=== PATIENT | female | born 1950 | race Caucasian/White ===

== ENCOUNTER 2018-02-11 20:39 | Emergency (ER) | payer OTHER, MEDICARE, SELFPAY ==
[2018-02-11 20:54] VITALS: BP 139/74; PULSE 66; RESP 15; TEMP 37.1; O2SAT 99; BMI 23.3
--- NOTE | 2018-02-11 21:23 | ED.EYEPROB ---
HPI - Eye Problem <Cassidy Robertson PA-C - Last Filed: 02/11/18 22:05> General Chief complaint: Eye Problems Stated complaint: LT EYE INJURY Time Seen by Provider: 02/11/18 21:23 Source: patient Mode of arrival: ambulatory Limitations: no limitations History of Present Illness HPI Narrative: This healthy 67-year-old female had a sharp piece of proud grass poke up under her glasses on the left side and into her eye a bit earlier. She states that it was quite painful at 1st but she flushed it thoroughly with saline, and now it is more scratchy and irritated. She feels like she has a cloudy urea on her pupil where it is harder to see normally, and this is right where the grass poked or scratched her. She denies any drainage from the eye or any other injury. Related Data Previous Rx's Medication Instructions Recorded erythromycin 0.5 inch EYE-LEFT Q6H #1 gram 02/11/18 Allergies Allergy/AdvReac Type Severity Reaction Status Date / Time cephalexin [From Keflex] Allergy Verified 02/11/18 20:57 clindamycin Allergy Verified 02/11/18 20:57 Penicillins Allergy Verified 02/11/18 20:57 Sulfa (Sulfonamide Allergy Verified 02/11/18 20:57 Antibiotics) Review of Systems <Cassidy Robertson PA-C - Last Filed: 02/11/18 22:05> Review of Systems All systems reviewed & are unremarkable except as noted in HPI and below Exam <Cassidy Robertson PA-C - Last Filed: 02/11/18 22:05> Narrative Exam Narrative: GENERAL APPEARANCE: Patient sitting comfortably, in no distress. HEENT: Vision: 20/30 OU, 20/30 OD, 20/40 OS PERRL, EOMI, no visible puncture wound or anterior deformity under plain magnification. After proparacaine drop and with fluorescin stain, there is a single linear abrasion over the cornea at the right superior pupil. No other visible abrasion. Negative Carol sign LUNGS: Clear to auscultation bilaterally. HEART: Rate and rhythm regular without murmur, normal S1 and S2, no S3 or S4. Initial Vital Signs Initial Vital Signs: Vital Signs Temperature 98.7 F 02/11/18 20:54 Pulse Rate 66 02/11/18 20:54 Respiratory Rate 15 02/11/18 20:54 Blood Pressure 139/74 H 02/11/18 20:54 Pulse Oximetry 99 02/11/18 20:54 <Edil Hyde MD - Last Filed: 02/27/18 10:01> Initial Vital Signs Initial Vital Signs: Vital Signs Temperature 98.7 F 02/11/18 20:54 Pulse Rate 66 02/11/18 20:54 Respiratory Rate 15 02/11/18 20:54 Blood Pressure 139/74 H 02/11/18 20:54 Pulse Oximetry 99 02/11/18 20:54 Course <Cassidy Robertson PA-C - Last Filed: 02/11/18 22:05> Additional Information: Erythromycin ointment was applied while patient was here. She will continue this, and agrees to call Ophthalmology in the morning if her vision is not improved. She agreed to return if any acutely worsening symptoms in the interim. Orders Ordered: Discontinued Medications Proparacaine HCl (Parcaine 0.5% Ophth Annabel) 1 drops EYE-LEFT NOW ONE Stop: 02/11/18 21:25 Last Admin: 02/11/18 21:49 Dose: 1 drop Tetanus/Diphtheria Toxoids (Td) 0.5 ml IM .ONCE ONE Stop: 02/11/18 21:42 Last Admin: 02/11/18 21:47 Dose: 0.5 ml Vital Signs - 8 hr 02/11/18 20:54 Temperature 98.7 F Pulse Rate 66 Respiratory Rate 15 Blood Pressure 139/74 H Pulse Oximetry 99 <Edil Hyde MD - Last Filed: 02/27/18 10:01> Orders Ordered: Discontinued Medications Proparacaine HCl (Parcaine 0.5% Ophth Annabel) 1 drops EYE-LEFT NOW ONE Stop: 02/11/18 21:25 Last Admin: 02/11/18 21:49 Dose: 1 drop Tetanus/Diphtheria Toxoids (Td) 0.5 ml IM .ONCE ONE Stop: 02/11/18 21:42 Last Admin: 02/11/18 21:47 Dose: 0.5 ml Vital Signs - 8 hr 02/11/18 20:54 Temperature 98.7 F Pulse Rate 66 Respiratory Rate 15 Blood Pressure 139/74 H Pulse Oximetry 99 Discharge Plan Departure Patient Disposition: Home, Self-Care Clinical Impression: Abrasion, corneal Discharge Date/Time: 02/11/18 22:00 Interventions: ED Discharge Assessment Last Done: 02/11/18 22:19 Instructions: DI for Corneal Abrasion Activity Restrictions/Additional Instructions: Please return as we talked about if any acutely worsening symptoms. Apply a warm compress to the eye as needed for drainage or for discomfort. Put in a 1/2 inch ribbon of the antibiotic ointment under your eyelid every 3-4 hours while you are awake for the next 24 hr, then every 6 hr for [address] Bernardo or Dr. Kelly at the opthamology clinic here in [place] tomorrow if your vision is not improved, and let them know that you were seen in the emergency room and need follow-up due to your vision change and eye abrasion Prescriptions: New erythromycin 5 mg/gram (0.5 %) ointment 0.5 inch EYE-LEFT Q6H Qty: 1 RF: 0 Referrals: Priyank Bernardo MD [Physician] - Maliha Ambrocio PA-C [Non-Staff] - <Edil Hyde MD - Last Filed: 02/27/18 10:01> Sign Out Provider Sign Out Attestation: The PA/MERCHANDISE SUPERVISOR functioned independently for the care of this pt, I was available, but not asked to participate in care. I am unable to determine appropriateness of management without personally examining the pt.
[2018-02-11] MEDS: TETANUS DIPHTHERIA TOXOIDS 0.5 ML VIAL IM (21:47)
[2018-02-11] MEDS: PROPARACAINE 0.5% OPHTH SOL 1 DROPS EYE-LEFT (21:49)
== END 2018-02-11 22:00 | disposition home or self-care (01) ==
PROVIDERS: Emergency Provider Internal Medicine
DX: S05.02XA Injury of conjunctiva and corneal abrasion without foreign body, left eye, initial encounter (principal); W26.8XXA Contact with other sharp object(s), not elsewhere classified, initial encounter
CPT/HCPCS: 90471; 90714; 99283

== ENCOUNTER 2019-08-24 17:43 | Emergency (ER) | payer OTHER, MEDICARE, SELFPAY ==
--- NOTE | 2019-08-24 17:53 | DI.RAD.S_ITS ---
PROCEDURE: XR WRIST LT MIN 3V INDICATIONS: wrist deformity TECHNIQUE: 3 views of the wrist were acquired. COMPARISON: None. FINDINGS: Bones: Comminuted, moderately displaced and slightly angulated distal radius fracture with extension to the articular surface. There is also mild impaction. There is mild radial displacement of the majority of the distal fracture fragment. A small ulnar styloid avulsion is seen. Osteoarthritic changes at the first carpometacarpal joint. Soft tissues: No suspicious soft tissue calcifications. IMPRESSION: 1. Comminuted, impacted, moderately displaced and angulated intra-articular distal radius fracture. 2. Tiny ulnar styloid avulsion. Dictated by: Sheila Marsh M.D. on 08/24/2019 at 18:51 Approved by: Sheila Marsh M.D. on 08/24/2019 at 18:53
[2019-08-24 17:54] VITALS: BP 122/66; PULSE 48; RESP 15; TEMP 36.4; O2SAT 98; BMI 23.6
--- NOTE | 2019-08-24 18:43 | DI.RAD.S_ITS ---
PROCEDURE: XR ELBOW LT MIN 3V INDICATIONS: Elbow pain post fall TECHNIQUE: 3 views of the elbow were acquired. COMPARISON: None. FINDINGS: Bones: No fractures or dislocations. No suspicious bony lesions. Soft tissues: No elbow joint effusion. No suspicious soft tissue calcifications. IMPRESSION: Intact left elbow. Dictated by: Sheila Marsh M.D. on 08/24/2019 at 20:29 Approved by: Sheila Marsh M.D. on 08/24/2019 at 20:30
--- NOTE | 2019-08-24 18:45 | ED.UPPEXIN ---
HPI - Extremity Injury (Upper) <SUZY Louis - Last Filed: 08/25/19 11:20> General Chief Complaint: Extremity Injury, Upper Stated Complaint: lt wrist injury Time Seen by Provider: 08/24/19 17:58 Source: patient Mode of arrival: Wheelchair Limitations: no limitations History of Present Illness HPI narrative: 69-year-old female presents to the emergency department complaining of left wrist and elbow pain after falling while slipping on the ice. She states she fell and stuck her left hand backwards. She heard a snap and noticed an immediate deformity. Patient denies hitting her head or taking any blood thinners, she shoulder pain, chest pain, shortness of breath, nausea, vomiting, diarrhea, or other concerns. She denies syncope. Related Data Previous Rx's Medication Instructions Recorded erythromycin 0.5 inch EYE-LEFT Q6H #1 gram 02/11/18 hydrocodone-acetaminophen [Olalla] 1 tab PO Q4-6H PRN #14 tab 08/24/19 Allergies Allergy/AdvReac Type Severity Reaction Status Date / Time cephalexin [From Keflex] Allergy Verified 08/24/19 17:54 clindamycin Allergy Verified 08/24/19 17:54 codeine Allergy Verified 08/24/19 17:54 Penicillins Allergy Verified 08/24/19 17:54 Sulfa (Sulfonamide Allergy Verified 08/24/19 17:54 Antibiotics) Review of Systems <SUZY Louis - Last Filed: 08/25/19 11:20> Review of Systems Narrative: REVIEW OF SYSTEMS: GENERAL: Denies fever or chills. HENT: No head trauma. EYES: No double vision or vision loss. CARDIOVASCULAR: No chest pain or syncope. RESPIRATORY: No shortness of breath or cough. GASTROINTESTINAL: No nausea, vomiting, diarrhea, or constipation. GENITOURINARY: No flank pain or dysuria. MUSCULOSKELETAL: Complains of Left wrist pain, see HPI. INTEGUMENTARY: No rash, lesions, or pruritus. NEURO: No numbness, tingling. PSYCH: No behavior or mood changes. Patient History <SUZY Louis - Last Filed: 08/25/19 11:20> Medical History Healthy female (Chronic) Surgical History H/O pelvic surgery (Resolved) Social History Smoking Status: Never smoker alcohol intake: current substance use type: does not use Smoking Status: Never smoker alcohol intake frequency: holidays/special occasions only Substance Use Type: does not use Exam <SUZY Louis - Last Filed: 08/25/19 11:20> Initial Vital Signs Initial Vital Signs: Vital Signs Temperature 97.6 F 08/24/19 17:54 Pulse Rate 48 L 08/24/19 17:54 Respiratory Rate 15 08/24/19 17:54 Blood Pressure 122/66 08/24/19 17:54 Pulse Oximetry 98 08/24/19 17:54 PHYSICAL EXAMINATION: GENERAL: Well groomed, alert, and cooperative. Answers questions promptly and appropriately. Vital signs noted. HENT: Normocephalic, atraumatic. EYES: PERRLA EOMIs, symmetrical, sclera white, no periorbital swelling. CARDIOVASCULAR: S1 and S2 sounds normal. Regular rate and rhythm, no murmurs, clicks, or bruits. No pedal edema. RESPIRATORY: Normal respiratory rate, trachea midline, airway patent. No stridor, nasal flaring or accessory muscle use. Lungs are clear in all luis. MUSCULOSKELETAL: Tenderness to left wrist with obvious deformity, swelling, and ecchymosis. Very limited range of motion due to pain. Slight tenderness to palpation of left elbow. Normal gait and coordination. Equal tone and mass bilaterally. No spinal tenderness or deformities. no tenderness to shoulders, neck, head, pelvis, knees, or ankles. EXTREMITIES: CMS intact. radial pulses 2+ and intact bilaterally. SKIN: Warm, dry, soft, appropriate color for ethnicity. No lesions, rashes, or wounds. NEURO: Alert and Oriented X 3. No sensory deficits. PSYCH: Appropriate affect and mood. <Edgar Yoon MD - Last Filed: 09/12/19 19:26> Initial Vital Signs Initial Vital Signs: Vital Signs Temperature 97.6 F 08/24/19 17:54 Pulse Rate 48 L 08/24/19 17:54 Respiratory Rate 15 08/24/19 17:54 Blood Pressure 122/66 08/24/19 17:54 Pulse Oximetry 98 08/24/19 17:54 Procedures <SUZY Louis - Last Filed: 08/25/19 11:20> Nerve Block Nerve Block 1: Time out performed: Yes Local Anesthetic: lidocaine 2% Amount of anesthesia used (mL): 10 Side: left Nerve Blocks: hematoma block Procedure Successful: Yes Patient Tolerated Procedure: Well Complications: none Additional Comments: Completed by Dr. Yoon Orthopedic Joint Reduction Joint #1: Time Out Performed: Yes Side: left Joint Reduction Location: wrist Analgesia: hematoma block Local Anesthesia: lidocaine 2% Amount of anesthesic used (mL): 10 Technique used: traction/counter-traction Post-reduction neuro exam: intact Post-reduction vascular: intact Post Reduction X-Ray Obtained: Yes Post Reduction X-Ray Results: reduced Splint Applied: Yes Patient Tolerated Procedure: Well Additional Comments: Completed by Dr. Yoon. Orthopedic Splinting/Casting Injury #1: Side: left Upper Extremity Injury Location: wrist Upper Extremity Immobilizer: sling/shoulder immobilizer and sugar tong splint Post splinting neuro exam: intact Post splinting vascular exam: intact Placed by: Nursing Course <SUZY Louis - Last Filed: 08/25/19 11:20> Course Course Narrative: Patient was given Olalla and ondansetron to help with pain in the emergency department stay. Dr. Fishman consulted and Recommended reduction. Dr. Yoon reduced wrist with hematoma block, See procedure note. patient tolerated well and was discharged with pain medications. CMS remains intact before and after reduction. Orders Ordered: Discontinued Medications Hydrocodone Bitart/Acetaminophen (Olalla 5/325) 1 tab PO NOW ONE Stop: 08/24/19 18:45 Last Admin: 08/24/19 19:14 Dose: 1 tab Documented by: THEO Hydrocodone Bitart/Acetaminophen (Vicodin 5/325 Prepack) 1 bottle MISC SEEINSTR ONE Stop: 08/24/19 21:34 Last Admin: 08/24/19 21:49 Dose: 1 bottle Documented by: THEO Lidocaine HCl 15 ml/ Sodium (Chloride) 65 mls @ 390 mls/hr IV NOW ONE Stop: 08/24/19 20:35 Last Admin: 08/24/19 22:05 Dose: Not Given Documented by: THEO Ondansetron HCl (Zofran Odt) 4 mg SL NOW ONE Stop: 08/24/19 18:45 Last Admin: 08/24/19 19:14 Dose: 4 mg Documented by: THEO Ondansetron HCl (Zofran Odt Prepack) 1 bottle MISC SEEINSTR ONE Stop: 08/24/19 21:34 Last Admin: 08/24/19 21:49 Dose: 1 bottle Documented by: THEO Consultations Consultation #1: Patient staffed with Dr. Yoon Consultation #2: Dr. Fishman consulted, recommended reduction. Vital Signs Vital signs: Vital Signs - 8 hr 08/24/19 17:54 Temperature 97.6 F Pulse Rate 48 L Respiratory Rate 15 Blood Pressure 122/66 Pulse Oximetry 98 <Edgar Yoon MD - Last Filed: 09/12/19 19:26> Orders Ordered: Discontinued Medications Hydrocodone Bitart/Acetaminophen (Olalla 5/325) 1 tab PO NOW ONE Stop: 08/24/19 18:45 Last Admin: 08/24/19 19:14 Dose: 1 tab Documented by: THEO Hydrocodone Bitart/Acetaminophen (Vicodin 5/325 Prepack) 1 bottle MISC SEEINSTR ONE Stop: 08/24/19 21:34 Last Admin: 08/24/19 21:49 Dose: 1 bottle Documented by: THEO Lidocaine HCl 15 ml/ Sodium (Chloride) 65 mls @ 390 mls/hr IV NOW ONE Stop: 08/24/19 20:35 Last Admin: 08/24/19 22:05 Dose: Not Given Documented by: THEO Ondansetron HCl (Zofran Odt) 4 mg SL NOW ONE Stop: 08/24/19 18:45 Last Admin: 08/24/19 19:14 Dose: 4 mg Documented by: THEO Ondansetron HCl (Zofran Odt Prepack) 1 bottle MISC SEEINSTR ONE Stop: 08/24/19 21:34 Last Admin: 08/24/19 21:49 Dose: 1 bottle Documented by: THEO Vital Signs Vital signs: Vital Signs - 8 hr 08/24/19 17:54 Temperature 97.6 F Pulse Rate 48 L Respiratory Rate 15 Blood Pressure 122/66 Pulse Oximetry 98 MDM - Extremity Injury (Upper) <SUZY Louis - Last Filed: 08/25/19 11:20> Medical Records Attestation: I reviewed the patient's medical records. Lab Data Attestation: I reviewed the patient's lab results. Imaging Data Pre reduction Wrist XR: Radiologist's Impression: [address] [address] XRay Report Signed Patient: Amita Gloria YMR#: [id number] : 2At:[id number] Age/Sex: 69 / FDate of Service: 08/24/19 Loc: ED Accession Number: [id number] Procedure: XR wrist LT min 3V Ordering Provider: Gladys Cesar D.O. PROCEDURE: XR WRIST LT MIN 3V INDICATIONS: wrist deformity TECHNIQUE: 3 views of the wrist were acquired. COMPARISON: None. FINDINGS: Bones: Comminuted, moderately displaced and slightly angulated distal radius fracture with extension to the articular surface. There is also mild impaction. There is mild radial displacement of the majority of the distal fracture fragment. A small ulnar styloid avulsion is seen. Osteoarthritic changes at the first carpometacarpal joint. Soft tissues: No suspicious soft tissue calcifications. IMPRESSION: 1. Comminuted, impacted, moderately displaced and angulated intra-articular distal radius fracture. 2. Tiny ulnar styloid avulsion. Dictated by: Sheila Marsh M.D. on 08/24/2019 at 18:51 Approved by: Sheila Marsh M.D. on 08/24/2019 at 18:53 Elbow XRay: Radiologist's Impression: [address] [address] XRay Report Signed Patient: Amita Gloria YMR#: [id number] : 2At:[id number] Age/Sex: 69 / FDate of Service: 08/24/19 Loc: ED Accession Number: [id number] Procedure: XR elbow LT min 3V Ordering Provider: Ursula Acevedo PROCEDURE: XR ELBOW LT MIN 3V INDICATIONS: Elbow pain post fall TECHNIQUE: 3 views of the elbow were acquired. COMPARISON: None. FINDINGS: Bones: No fractures or dislocations. No suspicious bony lesions. Soft tissues: No elbow joint effusion. No suspicious soft tissue calcifications. IMPRESSION: Intact left elbow. Dictated by: Sheila Marsh M.D. on 08/24/2019 at 20:29 Approved by: Sheila Marsh M.D. on 08/24/2019 at 20:30 Post reduction: Radiologist's Impression: [facility] [address] [place] [id number] XRay Report Signed Patient: Amita Gloria YMR#: [id number] : 2Acct:[id number] Age/Sex: 69 / FDate of Service: 08/24/19 Loc: ED Accession Number: [id number] Procedure: XR wrist LT 2V Ordering Provider: Ursula Acevedo PROCEDURE: XR WRIST LT 2V INDICATIONS: post reduction film TECHNIQUE: 2 views of the wrist were acquired. COMPARISON: [facility], , XR WRIST LT MIN 3V, 08/24/2019, 18:07. FINDINGS: Bones: Splint material obscures fine bone detail. There is improved alignment of the comminuted and previously moderately displaced distal radial fracture. There has also been reduction of the volar angulation. Ulnar styloid avulsion is again seen as are osteoarthritic changes at the first carpometacarpal.. No suspicious bony lesions. Soft tissues: No suspicious soft tissue calcifications. IMPRESSION: 1. Improved alignment of the comminuted, intra-articular distal radius fracture including reduction of angulation. 2. Trace ulnar styloid fracture. 3. Osteoarthritic changes. Dictated by: Sheila Marsh M.D. on 08/24/2019 at 22:23 Approved by: Sheila Marsh M.D. on 08/24/2019 at 22:25 [facility] Narrative Medical decision making narrative: 69-year-old female presenting to the emergency department complaining of left wrist pain after a fall, notable deformity and swelling. X-ray shows displaced radial fracture and ulnar avulsion. Fracture was reduced by hematoma block by Dr. Yoon. Sugar-tong splint was placed. improved pain and alignment after reduction. CMS remains intact before and after reduction. Patient was given a sling and told to follow up with an orthopedic. She was discharged with medication for pain. No signs of distracting injuries. Return precautions given. Discharge Plan Departure Patient Disposition: Home Clinical Impression: Distal radial fracture Discharge Date/Time: 08/24/19 22:04 Instructions: DI for Distal Radius Fracture Activity Restrictions/Additional Instructions: Thank you for entrusting me with your care today. As discussed, Your x-ray show a distal radius fracture and ulna styloid avulsion. Please leave the splint in place until you see an orthopedic. Please call Orthopedics office tomorrow and tell them you were in the emergency department and schedule an appointment. I've given you medication for nausea and pain. You have been prescribed a narcotic medication, this medication can make you drowsy. Do not drive while using this medication or perform activities that require mental alertness. These medications can also make you constipated, please use [id number] docusate sodium as needed for constipation. Return emergency department for new or worsening symptoms such as decreased sensation in wrist, chest pain, shortness of breath, or other concerns. Prescriptions: New hydrocodone-acetaminophen [Olalla] 5-325 mg tablet 1 tab PO Q4-6H PRN (Reason: pain) Qty: 14 RF: 0 No Action erythromycin 5 mg/gram (0.5 %) ointment 0.5 inch EYE-LEFT Q6H Qty: 1 RF: 0
[2019-08-24] MEDS: ONDANSETRON 4 MG ODT SL (19:14)
[2019-08-24] MEDS: HYDROCODONE/ACET 5/325 TABLET 1 TAB PO (19:14)
--- NOTE | 2019-08-24 21:14 | DI.RAD.S_ITS ---
PROCEDURE: XR WRIST LT 2V INDICATIONS: post reduction film TECHNIQUE: 2 views of the wrist were acquired. COMPARISON: [facility], CR, XR WRIST LT MIN 3V, 08/24/2019, 18:07. FINDINGS: Bones: Splint material obscures fine bone detail. There is improved alignment of the comminuted and previously moderately displaced distal radial fracture. There has also been reduction of the volar angulation. Ulnar styloid avulsion is again seen as are osteoarthritic changes at the first carpometacarpal.. No suspicious bony lesions. Soft tissues: No suspicious soft tissue calcifications. IMPRESSION: 1. Improved alignment of the comminuted, intra-articular distal radius fracture including reduction of angulation. 2. Trace ulnar styloid fracture. 3. Osteoarthritic changes. Dictated by: Sheila Marsh M.D. on 08/24/2019 at 22:23 Approved by: Sheila Marsh M.D. on 08/24/2019 at 22:25
[2019-08-24] MEDS: HYDROCODONE/ACET 5/325 PREPACK 1 BOTTLE MISC (21:49)
[2019-08-24] MEDS: ONDANSETRON 4 MG ODT PREPACK 1 BOTTLE MISC (21:49)
[2019-08-24 22:04] VITALS: BP 122/81; PULSE 57; RESP 18; O2SAT 98
== END 2019-08-24 22:04 | disposition home or self-care (01) ==
PROVIDERS: Emergency Provider Nurse Practitioner
DX: S52.502A Unspecified fracture of the lower end of left radius, initial encounter for closed fracture (principal); W00.0XXA Fall on same level due to ice and snow, initial encounter
CPT/HCPCS: 25605; 29125; 64450; 73080; 73100; 73110; 99284

== ENCOUNTER → 2021-01-15 09:50 | Outpatient (CLI) | payer OTHER, MEDICARE, SELFPAY ==
[2021-01-15 12:28] LABS: COVID19 -Nasal RAPID Negative (Negative)
== END ==
PROVIDERS: Visit Provider Physician Assistant
DX: Z01.812 Encounter for preprocedural laboratory examination (principal); Z20.822 Contact with and (suspected) exposure to COVID-19
CPT/HCPCS: 87635

== ENCOUNTER → 2021-01-15 09:57 | Outpatient (CLI) | payer OTHER, MEDICARE, SELFPAY ==
--- NOTE | 2021-01-16 16:23 | DI.NM.S_ITS ---
DATE OF SERVICE: PROCEDURE: Exercise perfusion study. DATE OF STUDY: January 16, 2021. INDICATIONS: Chest pain. RADIOPHARMACEUTICAL: 26.2 millicurie technetium-99m Myoview IV was injected at stress and 26.0 millicurie technetium-99m Myoview IV was injected at rest. CARDIAC STRESS: The patient underwent exercise perfusion study under the supervision of an attending staff. She walked on Diogo protocol for 6 minutes and achieved 89 percent of target heart rate. Initial blood pressure 132/68 mmHg. Peak blood pressure 210/76 mmHg. At 2 minutes into the exercise, patient developed chest pain which was on a scale of 1-10, 4 in intensity, which increased to 8/10 in intensity at peak exercise. Baseline rhythm was sinus with repolarization changes and T-wave inversion in V1 to V4. During stress, the patient developed about [address] depression in inferior lateral leads and in recovery, which became more pronounced, as well as some flattening in lead V4 to V6 with 1-[address] depression. There was slight ST elevation in AVR lead. No significant arrhythmias seen. ST-segment recovered in 5 minutes into the recovery. T-wave became upright in anterior septal lead during exercise. RAW DATA: LV ejection fraction during stress about 67 percent. There is a decreased uptake in the distal anterior wall and apex with hypokinesis in that segment. Resting end-diastolic volume 89 mL. TID ratio 1.16, which is within normal limits. Lung/heart ratio 0.30, which is within normal limits. MYOCARDIAL PERFUSION SCAN: Stress supine, resting supine and stress prone images were compared to each other. Resting supine images revealed moderate- size severely decreased perfusion of distal anterior wall extending into the anterior apex. During stress supine and stress prone images, there was large size, severely decreased perfusion of mid to distal anterior wall, entire apex, as well as mid to distal anterior septum. CONCLUSION: This is an abnormal myocardial perfusion study consistent with moderate size infarction of distal anterior wall, anterior apex with significant reversible ischemia of mid to distal anterior septum, mid anterior wall as well as inferior apex. 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 Findings of this abnormal perfusion study reported to PCP Maliha Ambrocio. Will recommend hospitalization and transfer to the facility where she can have left heart catheterization. Amita Gloria - DERMATOLOGIST/fn/cs doc#: [id number]/job#: [id number] dd: 01/16/2021 13:14:00 dt: 01/16/2021 15:50:00 DICTATING MD/COPIES TO: Randy Pugh MD; MERISSA Viera COPIES MNE: TASNEEM;
== END ==
PROVIDERS: PCP Physician Assistant Medical; Referring Provider Physician Assistant Medical; Visit Provider Physician Assistant Medical
DX: R07.9 Chest pain, unspecified (principal)
CPT/HCPCS: 78452; 93017; A9502

== ENCOUNTER → 2021-04-10 16:46 | Outpatient (CLI) | payer OTHER, MEDICARE, SELFPAY ==
[2021-04-10 18:11] LABS: COVID19 -Nasal RAPID Negative (Negative)
== END ==
PROVIDERS: PCP Physician Assistant; Visit Provider Physician Assistant
DX: Z20.822 Contact with and (suspected) exposure to COVID-19 (principal)
CPT/HCPCS: 87635

== ENCOUNTER 2021-07-25 08:30 | Outpatient (RCR) | payer OTHER, MEDICARE, SELFPAY ==
--- OUTSIDE RECORDS SUMMARY | 2021-01-29 08:28 | XMS_ITS ---
:1950 Author Organization [facility] Address [address] [place] [address] Care Team Providers Name Role Phone Young Primary Care Provider Reason for Referral Hospital - Outpatient (Routine) Status Reason Specialty Diagnoses / Referred By Referred To Procedures Contact Contact Authorized Diagnoses Presence of coronary angioplasty implant and graft Rajesh Brock [facility] [address] [place] [address] [address] [id number] [place], [place] Phone: [phone] Electronically signed by Rajesh Brock MD at Reason for Visit Reason Comments Chest Pain Auth/Cert Status Reason Specialty Diagnoses / Procedures Referred By James shukla Referred To Contact Diagnoses Unstable angina (CMS/HCC) Procedures INPATIENT Encounter Details Date Type Department Care Team Description 01/16/2021 - Hospital Encounter [facility] Jerzy Karimi MD [address] [place], [place] [id number] Unstable angina (CMS/HCC) (Primary Dx); 01/18/2021 Hospital Progressive Joseph Florez MD [address] [place], [place] [id number] Acute ST elevation myocardial infarction (STEMI) due to occlusion of distal portion of left anterior descending (LAD) coronary artery (CMS/HCC) and Critical Care Jacklyn Lockett DO [address] [place], [place] [id number] [address] [place] [address] Allergies Active Allergy Reactions Severity Noted Date Comments Clindamycin Hives High 01/16/2021 Penicillins Hives High 01/16/2021 Sulfa (Sulfonamide Antibiotics) Hives High documented as of this encounter (statuses as of 01/26/2021) Medications Medication Sig Dispensed Refills Start Date End Date Status omeprazole (PriLOSEC) Take 20 mg by 0 Active 20 mg capsule mouth daily aspirin 81 mg chewable Take 1 tablet 30 tablet 0 01/19/2021 Active tablet (81 mg total) by mouth daily atorvastatin (LIPITOR) Take 1 tablet 30 tablet 0 01/18/2021 Active 40 mg tablet (40 mg total) by mouth nightly clopidogreL (PLAVIX) Take 1 tablet 30 tablet 1 01/19/202103/11 Active 75 mg tablet (75 mg total) by mouth daily documented as of this encounter (statuses as of 01/26/2021) Social History Tobacco Use Types Packs/Day Years Used Date Never Assessed Sex Assigned at Date Recorded Not on file Job Start Date Occupation Industry Not on file Not on file Not on file COVID-19 Exposure Response Date Recorded In the last month, have you been in contact with No / Unsure 01/16/2021 2:36 PM PDT someone who was confirmed or suspected to have Coronavirus / COVID-19? documented as of this encounter Last Filed Vital Signs Vital Sign [place] Time Taken Comments Blood Pressure 135/74 01/18/2021 8:14 AM PDT Pulse 67 01/18/2021 8:14 AM PDT Temperature 37.2 ??C (99 ??F) 01/18/2021 8:14 AM PDT Respiratory Rate 18 01/18/2021 8:14 AM PDT Oxygen Saturation 95% 01/18/2021 4:18 AM PDT Inhaled Oxygen Concentration - - Weight 65.3 kg (144 lb) 01/16/2021 8:08 PM PDT Height 167.6 cm (5' 6) 01/16/2021 8:08 PM PDT Body Mass Index 23.24 01/16/2021 8:08 PM PDT documented in this encounter Discharge Summaries Jacklyn Lockett, DO - 01/18/2021 11:05 AM PDT [facility] Physicians Discharge Summary Inpatient Primary Care Located Within [facility] Name: Amita Gloria Date of : 1950 Age: 70 y.o. Admit Date: 01/16/2021 Date of Discharge: 01/18/2021 Code Status: Full Code PCP: Maliha Ambrocio. Admitting Provider: Joseph Florez MD Discharging Provider: Jacklyn Lockett DO Hospital Day: 2 Date of Service: 01/18/2021 Pending Tests and other issues requiring follow up No future appointments. Discharge Medications Amita Gloria Home Medication Instructions JESSENIA:[id number] Printed on:01/18/21 2344 Medication Information aspirin 81 mg chewable tablet Take 1 tablet (81 mg total) by mouth daily atorvastatin (LIPITOR) 40 mg tablet Take 1 tablet (40 mg total) by mouth nightly clopidogreL (PLAVIX) 75 mg tablet Take 1 tablet (75 mg total) by mouth daily omeprazole (PriLOSEC) 20 mg capsule Take 20 mg by mouth daily Brief Reason for Admission From the H&P performed by Joseph Florez MD on 01/16/2021: Amtia Gloria??is a 70 y.o.??female??no significant past medical history,??several months of intermittent chest pain presenting from [place] after abnormal stress test??for further cardiac work-up by cardiology. Hospital Course by Problem Summary Statement: The patient was admitted to the hospital after a transfer from [facility] due to an abnormal stress test. The patient had a drug- eluting stent placed to the LAD. NSTEMI-??Present on Admission, Active -Abnormal treadmill stress test prior to admission on 01/16/2021.?? -EKG-T wave inversions -Initial Trop negative,??repeat troponin negative -Telemetry no acute evens -Heparin GTT -Plavix, ASA 81mg -Left heart cath 01/17/2021 drug-eluting stent placed to the LAD -Cardiology consulted Hyperlipidemia, present on admission, active -Lipid panel: Total cholesterol 227, HDL 74, LDL 137, triglyceride 80 -Atorvastatin 40 mg daily -Follow-up with PCP for medication adjustments Code Status:??Full code. Disposition Amita Gloria was discharged to Home in stable condition. Objective First recorded vital signs: Temp: 37 ??C (98.6 ??F) - BP: 134/70 - Heart Rate: 79 - Resp: 13 - SpO2: 99 % Most recent vital signs: Temp: 37.2 ??C (99 ??F) - BP: 135/74 - Heart Rate: 67 - Resp: 18 - SpO2: 95 % Physical Exam I have seen and examined Amita Gloria on 01/18/2021. Labs & ECG Hematology Results from last 7 days Lab Units 01/18/21 0911 01/17/21 0550 01/16/21 1454 WBC AUTO x10e3/uL 8.2 6.0 7.4 HEMOGLOBIN g/dL 12.3 13.1 13.1 HEMATOCRIT % 37.8 39.8 39.7 MCV fL 91 89 90 PLATELETS AUTO x10e3/uL 164 164 162 Chemistries Results from last 7 days Lab Units 01/18/21 0911 01/17/21 0550 01/16/21 1454 SODIUM mmol/L 138 140 139 POTASSIUM mmol/L 4.0 3.8 3.6 CHLORIDE mmol/L 104 107 104 CO2 mmol/L 24 22 24 BUN mg/dL 12.0 10.0 12.0 CREATININE mg/dL 0.71 0.65 0.73 GLUCOSE mg/dL 106* 103* 148* CALCIUM, SERUM mg/dL 9.4 9.3 9.6 MAGNESIUM mg/dL 1.9 -- -- AST U/L 19 20 23 ALT U/L 15 18 20 BILIRUBIN TOTAL mg/dL 0.9 0.8 0.4 ALBUMIN g/dL 4.0 4.0 4.1 TOTAL PROTEIN g/dL 7.1 7.0 7.6 Estimated Creatinine Clearance: 50.4 mL/min (by C-G formula based on SCr of 0.71 mg/dL). Coagulation Studies Results from last 7 days Lab Units 01/16/21 1454 INR 1.0 APTT sec 34.8* Urinalysis Cardiac Enzymes Results from last 7 days Lab Units 01/17/21 0550 01/16/21 1454 TROPONINT ug/L <0.010 <0.010 Lipid Profile Results from last 7 days Lab Units 01/18/21 0911 CHOLESTEROL mg/dL 227* HDL mg/dL 74 LDL CALCULATED mg/dL 137* VLDL CHOLESTEROL mg/dL 16 TRIGLYCERIDES mg/dL 80 Arterial Blood Gases Miscellaneous Labs Important Diagnostic Imaging XR CHEST 1 VIEW Result Date: 01/16/2021 [place]. [address] PATIENT NAME: AMITA GLORIA : 1950 GENDER: F EXAM DATE: 01/16/2021 15:42 ORDERED FROM: [facility] ORDERING PHYSICIAN: LAWRENCE KARIMI CC: -- - - - CONTRAST: [place] STATION ID: [id number] mGy: PROCEDURE: XR CHEST 1 VIEW INDICATIONS: chest painTECHNIQUE: One view of the chest was acquired. COMPARISON: None. FINDINGS: Surgical changes and devices: None. Lungs and pleura: On this semiupright portable chest examination, no large pneumothorax or large pleural effusions are seen. No focal infiltrates are seen. Mediastinum: Mediastinal contours appear normal. Heart size is normal. Bones and chest wall: No suspicious bony lesions. Age-appropriate bony degenerative changes are seen. Overlying soft tissues appear unremarkable. IMPRESSION: Unremarkable portable chest for age. Reviewed by: Desmond Martines M.D. on 01/16/2021 at 15:15 Approved by: Desmond Martines M.D. on 01/16/2021 at 15:15 SI LEFT HEART CATH Result Date: 01/17/2021 DATE OF SURGERY: 01/17/2021 PROCEDURE: 1. Selective right and left coronary angiography. 2. Left heart catheterization. 3. Percutaneous intervention on a chronically occluded left anterior descending. 4. Ultrasound guidance for access. 5. Supervision for moderate sedation. INDICATION: Unstable angina. PROCEDURAL DETAILS: Please refer to the procedure log. The patient was given moderate sedation with IV versed and fentanyl by a dedicated nurse under my [id number] supervision using physiological monitoring for the duration of the procedure. Briefly, it was done via right radial approach using a 6-Ivorian system. ANGIOGRAPHIC FINDINGS: 1. This right coronary artery is a large dominant vessel. It has mild luminal irregularities. No critical disease is noted. Collaterals faintly fill the LAD. 2. Left main: No significant disease. 3. Circumflex is nondominant. It is has mild luminal irregularities, but no critical stenosis. 4. LAD is totally occluded in its midportion past the takeoff of a small septal branch. The rest of the LAD fills via intracoronary collaterals as well. 5. Left heart catheterization revealed an LVEDP of 5. There was no gradient upon pullback. INTERVENTIONAL DETAILS: We tried to recanalize this vessel with a Terumo wire however it would not cross. We used a 1.5 mm Takeru balloon and this gave us additional push ability and we were able to cross the distal fibrous cap as well. Following that, balloon angioplasty was done initially with a 1.5 balloon. There was significant dissection at the point of BOBBIN COLLECTOR. This is not unexpected. We then did further inflations with a 2.0 balloon. Finally, we stented the mid LAD with a 2.5 x 28 mm stent. Proximal to that a 3.0 x 18 mm stent was delivered. At the distal edge of the 2.5 balloon therewas further plaque shift and dissection. We tacked this up with a 2.0 x 20 mm Groton drug coated stent. Of note, the rest of the stents were Xience. At this point we had deployed 3 stents. To summarize distally a 2.0 x 20 Gro[place], followed by 2.5 x 28 Xience followed by 3.0 x 18 Xience. Overlapping inflations were done with a noncompliant balloon distally. Final angiographic results were excellent.In summary, successful recanalization of a totally occluded LAD. The patient is advised dual antiplatelet therapy for at least 6 months post procedure. Admission Diagnosis(es) Unstable angina (CMS/[facility]) [I20.0] Present on Admission: None Discharge Diagnosis(es) Active Problems: No Active Problems: There are no active problems currently on the Problem List. Please update the Problem List and refresh. Hospital Operative Procedures * No surgery found * Activity Usual activity as tolerated. Functional status prior to admission: Independent. Functional status at discharge (including NSOC): Independent. Diet Order at Time of Discharge Dietary Orders (From admission, onward) Start Ordered 01/17/21 4607 Adult Diet Diet effective now Question: Diet type: Answer: Cardiac/Heart Healthy 01/17/21 1546 Advanced Care Planning Code Status: Full Code Advanced Care Planning Note documented: No POLST on file?: No Allergies Allergies Allergen Reactions ??? Clindamycin Hives ??? Penicillins Hives ??? Sulfa (Sulfonamide Antibiotics) Hives This discharge summary has been routed to Maliha Ambrocio via inAnaqua message or fax. Readmission Prevention: Has the discharge teach-back been completed: Yes Has a PCP. appt. ordered for post hospitalization 6 days after DC? Yes Has this been communicated with the PCP by the time the DC has taken place? No I spent greater than 30 minutes in preparation of discharge for Amita Gloria. Greater than 50% of that time was dedicated to patient counseling and coordination of care. Thank you for allowing me to participate in the care of Amita Gloria.. Electronically signed by: Jacklyn Lockett DO 01/18/2021 11:05 AM documented in this encounter Discharge Instructions Lizbet Harris CNA - 01/18/2021 10:25 AM PDT [facility] [phone] The office will call you to schedule you hospital follow up appt for 1 week Please ask your doctor for a referral to [facility] per your insurance request if a appointment has not been made for you Additional InstructionsJacklyn Lockett DO - 01/17/2021 You were admitted to the hospital for a heart attack. A stent was placed in your heart so it is veryimportant that you take the medication Plavix (Clopidogrel) daily! Please do not miss a dose of thismedication as missing a dose of this medication can potentially cause your stent to get clogged and this can potentially be life threatening. You also have been found to have high cholesterol which cancontribute to heart disease. You will continue to take the medication called atorvastatin for treatment. Your primary care provider can help you manage this. Please follow-up with your primary care provider in the next 7-10 days. If an appointment has not been made please call to schedule an appointment Please follow-up with Cardiology in 2 weeks. If an appointment has not been made please call to schedule an appointment Cardiology instructions below: Rest today, do not drink alcohol, take sedatives to help with sleep or make important decisions for 24hrs.Rest today, DO NOT DRIVE, no alcohol and do not make important decisions for the next 24 hours. WRIST CARE: We have left the deflated compression band in place on your wrist as a reminder to limit overuse. Avoid pushing, pulling or lifting more than 5 pounds for the next 5-7 days. No driving for (48hours)2 days. If bleeding develops, hold pressure for 15 minutes with a clean cloth or gauze. After 15 minutes orif you are unable to control the bleeding, saturating bandage, call 911. You may shower tomorrow. Dressing may be removed then gently wash site with soap and water, pat dry with a clean towel. Replace with bandaid until well healed. Do not put creams, lotions or powders on site. Do not soak or swim (hot tubs, pools, bathtub, dishwater) until site is completely healed, about 1 week. AttachmentsThe following attachments cannot be sent through Care Everywhere. Heart Catheterization (Discharge Care) (Senegalese)After Coronary Angioplasty and Intravascular Stent Placement (Key Attendant) (Senegalese)documented in this encounter Medications at Time of Discharge Medication Sig Dispensed Refills Start Date End Date omeprazole (PriLOSEC) 20 Take 20 mg by mouth 0 mg capsule daily aspirin 81 mg chewable Take 1 tablet (81 30 tablet 0 202002/18/2021 tablet mg total) by mouth daily atorvastatin (LIPITOR) 40 Take 1 tablet (40 30 tablet 0 05/202102/17/2021 mg tablet mg total) by mouth nightly clopidogreL (PLAVIX) 75 mg Take 1 tablet (75 30 tablet 1 03/20/2021 tablet mg total) by mouth daily nitroglycerin (NITROSTAT) 0 12/22/2020 0.4 mg SL tablet documented as of this encounter Progress Notes Ev Calix LSWAIC - 01/18/2021 12:29 PM PDT SOCIAL WORK: DISCHARGE Data: EMR reviewed. Pt is on day 2 for Problem List Items Addressed This Visit None Visit Diagnoses Unstable angina ([facility]) - Primary Relevant Medications aspirin 81 mg chewable tablet (Start on 01/19/2021) atorvastatin (LIPITOR) 40 mg tablet clopidogreL (PLAVIX) 75 mg tablet (Start on 01/19/2021) Other Relevant Orders Ambulatory Referral to Cardiac Rehabilitation Acute ST elevation myocardial infarction (STEMI) due to occlusion of distal portion of left anterior descending (LAD) coronary artery (CMS/HCC) Relevant Medications aspirin 81 mg chewable tablet (Start on 01/19/2021) atorvastatin (LIPITOR) 40 mg tablet clopidogreL (PLAVIX) 75 mg tablet (Start on 01/19/2021) Other Relevant Orders Heart Healthy Diet Pt is medically ready for discharge. [facility] be [facility] home[facility] HYDROMETER FINISHER met with patient at bedside to confirm discharge plan and assess for unidentified needs. They are agreeable to this discharge plan. They do not identify barriers or concerns to this plan. Discharge Information have been included in the After Visit Instructions. Assessment: alert and oriented x4. Per HYDROMETER FINISHER interactions, Physician Documentation and Nursing Documentation, patient has capacity for self care and has decisional capacity at this time. Plan: Pt to discharge home with spouse via POV. HYDROMETER FINISHER discussed d/c with pt, physician. All updated and agreeable to plan. DEMARCUS Silva Jacklyn Franz DO - 01/17/2021 4:21 PM PDT [facility] Progress Note Inpatient Primary Care Located Within [facility] Patient Name: Amita Gloria Date of : 1950 Age: 70 y.o. Code Status: Full Code Primary Care Physician: Maliha Ambrocio Admitting Provider: Joseph Florez MD Attending Provider: Jacklyn Lockett DO Admit Date: 01/16/2021 Date of Service: 01/17/2021 Hospital Day: 1 Assessment and Plan Amita Gloria is a 70 y.o. female no significant past medical history, several months of intermittent chest pain presenting from [place] after abnormal stress test for further cardiac work-up by cardiology. Unstable angina- Present on Admission, Active -Abnormal treadmill stress test prior to admission on 01/16/2021. -EKG-T wave inversions -Initial Trop negative, repeat troponin negative -Telemetry -Heparin GTT -Plavix -N.p.o. until after procedure -Left heart cath scheduled for 01/17/2021 -Cardiology consulted ?? VTE Prophylaxis: heparin gtt Code Status: Full code. Disposition Case was discussed with cardiology (Dr. Brock) who received the irregular stress test from [facility] and has elected to take the patient for a cardiac cath Current Hospital Medications Allergies Allergies Allergen Reactions ??? Clindamycin Hives ??? Penicillins Hives ??? Sulfa (Sulfonamide Antibiotics) Hives Medications Scheduled [START ON 01/18/2021] aspirin, 81 mg, oral, Daily [START ON 01/18/2021] clopidogreL, 75 mg, oral, Daily As needed ??? acetaminophen ??? atropine ??? docusate sodium ??? flumazeniL ??? heparin ??? Insert peripheral IV AND lidocaine AND Maintain IV access AND Saline lock IV AND sodium chloride ??? naloxone ??? naloxone ??? ondansetron ODT OR ondansetron ??? polyethylene glycol ??? senna Infusions heparin, 11 Units/kg/hr (Order-Specific), Last Rate: Stopped (01/17/21 1527) sodium chloride, 100 mL/hr, Last Rate: 100 mL/hr (01/17/21 1609) Subjective Patient's Update Patient was seen and examined at bedside. Patient currently has no complaints Interval Update No acute overnight events Objective BP 117/56 (BP Location: Right arm, Patient Position: Semi-Gong's) Pulse 60 Temp 37.1 ??C (98.8 ??F) (Oral) Resp 16 Ht 1.676 m Wt 65.3 kg SpO2 100% BMI 23.24 kg/m?? Intake/Output Summary (Last 24 hours) at 01/17/2021 1622 Last data filed at 01/17/2021 1527 Gross per 24 hour Intake 343.74 ml Output ??? Net 343.74 ml Physical Exam General: AAO ??3, no acute distress HEENT: NCAT, PERRLA, EOMI. Membranes pink and moist without exudate. Neck: Neck supple, No JVD Lungs: CTAB, No wheezing, rales, rhonchi Cardiovascular: +S1/S2, RRR, No murmur auscultated Abdomen: Soft, NT/ND. Bowel sounds present Extremities: No cyanosis/clubbing/edema Neurological: CNII-XII grossly intact Psychiatry: Mood and Affect appropriate Nursing notes and vital signs reviewed Labs and ECG Hematology Results from last 7 days Lab Units 01/17/21 0550 01/16/21 1454 WBC AUTO x10e3/uL 6.0 7.4 HEMOGLOBIN g/dL 13.1 13.1 HEMATOCRIT % 39.8 39.7 MCV fL 89 90 PLATELETS AUTO x10e3/uL 164 162 Chemistries Results from last 7 days Lab Units 01/17/21 0550 01/16/21 1454 SODIUM mmol/L 140 139 POTASSIUM mmol/L 3.8 3.6 CHLORIDE mmol/L 107 104 CO2 mmol/L 22 24 BUN mg/dL 10.0 12.0 CREATININE mg/dL 0.65 0.73 GLUCOSE mg/dL 103* 148* CALCIUM, SERUM mg/dL 9.3 9.6 AST U/L 20 23 ALT U/L 18 20 BILIRUBIN TOTAL mg/dL 0.8 0.4 ALBUMIN g/dL 4.0 4.1 TOTAL PROTEIN g/dL 7.0 7.6 Estimated Creatinine Clearance: 50.4 mL/min (by C-G formula based on SCr of 0.65 mg/dL). Coagulation Studies Results from last 7 days Lab Units 01/16/21 1454 INR 1.0 Urinalysis Cardiac Enzymes Results from last 7 days Lab Units 01/17/21 0550 01/16/21 1454 TROPONINT ug/L <0.010 <0.010 Lipid Profile Arterial Blood Gases Miscellaneous Labs Microbiology ECG No acute events on tele Diagnostic Imaging XR CHEST 1 VIEW Result Date: 01/16/2021 IMPRESSION: Unremarkable portable chest for age. Reviewed by: Desmond Martines M.D. on 01/16/2021t 15:15 Approved by: Desmond Martines M.D. on 01/16/2021 at 15:15 Electronically signed by: Jacklyn Lockett DO 01/17/2021 at 4:22 PM Portions of today's documentation have been created with the assistance of voice recognition software. Therefore, it may contain anomalous punctuation, anomalous independent misrecognitions, word substitutions, insertions or omissions. Occasional wrong-word or phonetically similar substitutions may also occur, all due to the inherent limitations of voice recognition software. Attempts to correct the above have been made by Jacklyn Lockett DO but it is recommended that the chart be read carefully torecognize, using context, where the substitutions may have occurred. Rian Sheffield PharmD - 01/16/2021 3:17 PM PDT Heparin Infusion per Pharmacy Management: Indication: ACS Dosing Wt: 65.5 kg Patient is on therapeutic hypothermia: No Date 01/16 01/16 Lab Time 2200 Xa Bolus (units) 3275 Infusion Rate (units/kg/hr) 12 Other anticoagulation: None Date Note documented in this encounter H&P Notes Rajesh Brock MD - 01/17/2021 3:29 PM PDT Cardiology Admission Note Patient Name: Amita Gloria Date of : 1950 Date of Admission: 01/16/2021 Date of Consultation: 01/17/2021 Primary Care Physician: Maliha Ambrocio Referring Physician: Gautam Reason for Admission: No ref. provider found requests admission of this patient for evaluation of HISTORY OF PRESENT ILLNESS: Ms. Gloria is a 70 y.o. female she had a stress test at [facility] earlier this morning. She reports having intermittent left-sided chest pain throughout the past several months, and was referred for this study after having multiple T-wave abnormalities on an ECG last month. Her pain is markedly worse with exertion and resolves when at rest. She reports that she had significant pain while on the treadmill today and was referred to the emergency department by cardiology as this was reported isidro an abnormal study. She is without pain currently. I contacted Dr. Marisol Downs who had read the stress test. He reported that the patient had significant abnormality on her stress test which was consistent with LAD disease. It was a markedly abnormal stress test. Patient also developed EKG changes as well as chest discomfort on the treadmill. At the time of my interview her was present. They both endorse that the patient for the last few months has been having significant exertional chest discomfort.. She can walk for approximately 100 yards and then starts noticing chest discomfort. She has 2's stop at that point. She regains her breath as well as chest discomfort resolves within 2 to 3 minutes of rest. At a slow pace she can do her day-to-day chores. She denies any resting chest discomfort. She has never had similar episodes in the past. She denies any GI/ bleeding no re cent strokes no upcoming surgeries. Code Status: Full Code Past Medical History: History reviewed. No pertinent past medical history. History reviewed. No pertinent surgical history. Allergies: Allergies Allergen Reactions ??? Clindamycin Hives ??? Penicillins Hives ??? Sulfa (Sulfonamide Antibiotics) Hives Home Medications: Medications Prior to Admission Medication Sig Dispense Refill Last Dose ??? omeprazole (PriLOSEC) 20 mg capsule Take 20 mg by mouth daily 01/15/2021 at Unknown time Current Medications: Current Facility-Administered Medications Medication Dose Route Frequency Provider Last Rate Last Admin ??? acetaminophen (TYLENOL) tablet 650 mg 650 mg oral q4h PRN Joseph Florez MD ??? [COMPLETED] clopidogreL (PLAVIX) 75 mg tablet - ADS Override Pull ??? docusate sodium (COLACE) capsule 100 mg 100 mg oral BID PRN Joseph Florez MD ??? heparin (porcine) injection 2,000-5,000 Units 2,000-5,000 Units intravenous q6h PRN Lawrence Karimi MD ??? heparin 25,000 units in 500 mL 0.45% NS (premix) 11 Units/kg/hr (Order- Specific) intravenous Titrated Joseph Florez MD Stopped at 01/17/21 1527 ??? lidocaine (XYLOCAINE) 10 mg/mL (1 %) injection 1 mL 1 mL infiltration Once PRN Joseph Florez MD And ??? sodium chloride 0.9 % flush 10 mL 10 mL intravenous PRN Joseph Florez MD ??? naloxone (NARCAN) injection 0.04 mg 0.04 mg intravenous PRN Joseph Florez MD ??? ondansetron ODT (ZOFRAN-ODT) disintegrating tablet 4 mg 4 mg oral q4h PRN Joseph Florez MD Or ??? ondansetron (ZOFRAN) injection 4 mg 4 mg intravenous q8h PRN Joseph Florez MD ??? polyethylene glycol (GLYCOLAX) packet 17 g 17 g oral Daily PRN Joseph Florez MD ??? senna (SENOKOT) tablet 8.6 mg 1 tablet oral BID PRN Joseph Florez MD Family History: History reviewed. No pertinent family history. Social History: Social History Socioeconomic History ??? Marital status: Unknown Spouse name: Not on file ??? Number of children: Not on file ??? Years of education: Not on file ??? Highest education level: Not on file Occupational History ??? Not on file Tobacco Use ??? Smoking status: Not on file Substance and Sexual Activity ??? Alcohol use: Not on file ??? Drug use: Not on file ??? Sexual activity: Not on file Other Topics Concern ??? Not on file Social History Narrative ??? Not on file Social Determinants of Health Financial Resource Strain: ??? Difficulty of Paying Living Expenses: Food Insecurity: ??? Worried About Running Out of Food in the Last Year: ??? Ran Out of Food in the Last Year: Transportation Needs: ??? Lack of Transportation (Medical): ??? Lack of Transportation (Non-Medical): Physical Activity: ??? Days of Exercise per Week: ??? Minutes of Exercise per Session: Stress: ??? Feeling of Stress : Social Connections: ??? Frequency of Communication with Friends and Family: ??? Frequency of Social Gatherings with Friends and Family: ??? Attends Zoroastrianism Services: ??? Active Member of Clubs or Organizations: ??? Attends Club or Organization Meetings: ??? Marital Status: Intimate Partner Violence: ??? Fear of Current or Ex-Partner: ??? Emotionally Abused: ??? Physically Abused: ??? Sexually Abused: Review of Systems 12 point review of systems is negative except for the ones mentioned in the HPI. Physical Examination: Most Recent Vital Signs: Temp: 37.1 ??C (98.8 ??F) BP: 109/59 Heart Rate: 69 Resp: (!) 14 SpO2: 100 % on Admission Weight: Weight: 65.5 kg Current weight: Weight: 65.3 kg BMI: Body mass index is 23.24 kg/m??. I/O???s (24 hours): Intake/Output Summary (Last 24 hours) at 01/17/2021 1529 Last data filed at 01/17/2021 1527 Gross per 24 hour Intake 343.74 ml Output ??? Net 343.74 ml I/O???s (this shift): I/O this shift: In: 343.7 [I.V.:343.7] Out: - Physical Exam STUDIES: Labs: @LABRCNT(WBC:3,HGB:3,HCT:3,PLT:3,NA:3,K:3,CL:3,CO2:3,BUN:3,CREA:3,GLU:3,CALCIUM: 3,INR:3,PT:3,PTT:3,CKTOTAL:3,CKMB:3,TROPONINI:3,BNP:3)@ No results found for: CHOL, TRIG, HDL, LDL @LABBRIEF(WBCI,HCT,PLTI,INI,NA,K,CA,CREAT,BNPTE,TROP,CHOL,TRIG,LDL,LDLD,HDL,ALT, CRP,TSH,HA1C)@ CARDIAC ENZYMES: No lab exists for component: TROPONINI, BNP ECG:is reviewed by me and shows normal sinus rhythm and anterior T wave abnormality. IMPRESSION AND RECOMMENDATIONS: This is a 70 y.o. female presents with recent onset of angina. She has a markedly abnormal stress test. I agree with doing an angiogram risk benefits and alternatives were explained to her. The patient consented. Her angiogram report is dictated under a separate cover. Briefly she had a totally occluded LAD which was successfully recanalized. I would recommend dual antiplatelet therapy for at least 6 months post procedure. She needs to have aggressive risk factor modification along with. 01/17/2021 3:29 PM Rajesh Meza MD - 01/17/2021 3:22 PM PDT Images from the original note were not included. Preprocedure History and Physical Indication for procedure: The encounter diagnosis was Unstable angina (CMS/HCC). Relevant past medical/surgical history: History reviewed. No pertinent surgical history.. History reviewed. No pertinent past medical history. Current medications: Current Facility-Administered Medications: acetaminophen (TYLENOL) tablet 650 mg, 650 mg, oral, q4h PRN, Joseph Florez MD clopidogreL (PLAVIX) 75 mg tablet - ADS Override Pull, , , , docusate sodium (COLACE) capsule 100 mg, 100 mg, oral, BID PRN, Joseph Florez MD fentaNYL (SUBLIMAZE) 50 mcg/mL injection - ADS Override Pull, , , , fentaNYL (SUBLIMAZE) 50 mcg/mL injection - ADS Override Pull, , , , fentaNYL (SUBLIMAZE) injection, , intravenous, Code/trauma/sedation med, Rajesh Brock MD, 50 mcg at 01/17/21 1459 heparin (porcine) in NaCl (PF) 1,000 unit/500 mL infusion - ADS Override Pull, , , , heparin (porcine) in NS 10,000 unit/1,000 mL - ADS Override Pull, , , , heparin (porcine) injection 2,000-5,000 Units, 2,000-5,000 Units, intravenous, q6h PRN, Lawrence Karimi MD heparin (porcine) injection, , intravenous, Code/trauma/sedation med, Rajesh Brock MD, 5,000 Units at 01/17/21 1435 heparin 25,000 units in 500 mL 0.45% NS (premix), 11 Units/kg/hr (Order- Specific), intravenous, Titrated, Joseph Florez MD, Last Rate: 14.41 mL/hr at 01/16/212202, 11 Units/kg/hr at 01/16/212202 Insert peripheral IV, , , Once AND lidocaine (XYLOCAINE) 10 mg/mL (1 %) injection 1 mL, 1 mL, infiltration, Once PRN AND Maintain IV access, , , Until discontinued AND Saline lock IV, , ,Once AND sodium chloride 0.9 % flush 10 mL, 10 mL, intravenous, PRN, Joseph Florez MD midazolam (VERSED) 1 mg/mL injection - ADS Override Pull, , , , midazolam (VERSED) 1 mg/mL injection - ADS Override Pull, , , , midazolam (VERSED) injection, , intravenous, Code/trauma/sedation med, Rajesh Brock MD, 1 mg at 01/17/21 1458 naloxone (NARCAN) injection 0.04 mg, 0.04 mg, intravenous, PRN, Joseph Florez MD nitroglycerin (NITROLINGUAL) 400 mcg/spray translingual - ADS Override Pull, , , , nitroglycerin 100 mcg/mL injection - ADS Override Pull, , , , nitroglycerin 100 mcg/mL injection, , , Code/trauma/sedation med, Rajesh Brock MD, 100 mcg at 01/17/21 1501 ondansetron ODT (ZOFRAN-ODT) disintegrating tablet 4 mg, 4 mg, oral, q4h PRN OR ondansetron (ZOFRAN) injection 4 mg, 4 mg, intravenous, q8h PRN, Joseph Florez MD polyethylene glycol (GLYCOLAX) packet 17 g, 17 g, oral, Daily PRN, Joseph Florez MD senna (SENOKOT) tablet 8.6 mg, 1 tablet, oral, BID PRN, Joseph Florez MD verapamiL (ISOPTIN) 2.5 mg/mL injection - ADS Override Pull, , , , verapamil injection, , , Code/trauma/sedation med, Rajesh Brock MD, 1,000 mcg at 01/17/21 1435 Relevant family history: Non-contributory Relevant review of systems: Non-contributory Allergies: Clindamycin, Penicillins, and Sulfa (sulfonamide antibiotics) Relevant Labs: Lab Results Component Value Date CREATININE 0.65 01/17/2021 EGFR 92 01/17/2021 INR 1.0 01/16/2021 Directed physical examination: Alert/Oriented: Normal HEENT: Normal Chest/Lungs: Normal Heart: Normal Abdomen: Normal Mallampati: II (hard and soft palate, upper portion of tonsils anduvula visible) ASA Score: ASA 3 - Patient with moderate systemic disease with functional limitations Joseph Gutierrez MD - 01/16/2021 3:43 PM PDT [facility]: HISTORY & PHYSICAL Patient Name: Amita Gloria Date of : 1950 Age: 70 y.o. Code Status: No Order Primary Care Physician: Maliha Ambrocio Admitting Provider: No admitting provider for patient encounter. Attending Provider: Lawrence Karimi MD Admit Date: 01/16/2021 Date of Service: 01/16/2021 Hospital Day: 0 ASSESSMENT & PLAN Amita Gloria is a 70 y.o. female no significant past medical history, several months of intermittent chest pain presenting from [place] after abnormal stress test for further cardiac work-up by cardiology. Unstable angina- Present on Admission, Active Abnormal treadmill stress test prior to admission on 01/16/2021. - EKG-T wave inversions - Initial Trop negative, repeat - Telemetry. -Cardiology consulted-recommend heparin infusion, Plavix. Will need left heart cath in a.m. n.p.o. past midnight. VTE Prophylaxis: heparin gtt Code Status: Full code. Patient Status: Patient's expected length of stay: Greater than 2 midnights. Patient is under Inpatient status due to severity of presenting symptoms, complexity of treatment plan, and risk of adverse event. Functional status prior to admission: Independent. Functional expectation at discharge (including NSOC): Independent. How will the patient get home from the hospital?: To be determined Are there any known barriers to discharge on admission?: None SUBJECTIVE Chief Complaint Patient presents with ??? Chest Pain Source of History: The patient & chart review History of Present Illness Amita Gloria is a 70 y.o. female no significant past medical history, several months of intermittent chest pain presenting from [place] after abnormal stress test for further cardiac work-up by cardiology. Patient had chest pain during today stress test. Past EKG has shown T wave abnormalities. Chest painis worse with exertion relieved by rest. No chest pain at the time of presentation to emergency room. Patient denies any fever, chills, shortness of breath, nausea, vomiting, diarrhea. No recent trauma.No recent travel. No sick contacts. Not on any blood thinners Review of Systems A comprehensive review of systems was conducted and found to be negative, except as above in the History of Present Illness. Allergies Allergies Allergen Reactions ??? Clindamycin Hives ??? Penicillins Hives ??? Sulfa (Sulfonamide Antibiotics) Hives Current Medications (Not in a hospital admission) Past Medical History History reviewed. No pertinent past medical history. Past Surgical History History reviewed. No pertinent surgical history. Family History family history is not on file. Social History The patient Social History Social History Narrative ??? Not on file OBJECTIVE First recorded vitals: Temp: 37 ??C (98.6 ??F) - BP: 134/70 - Heart Rate: 79 - Resp: 13 - SpO2: 99 % Most recent vitals: Temp: 37 ??C (98.6 ??F) - BP: 134/70 - Heart Rate: 79 - Resp: 13 - SpO2: 99 % Physical Exam GEN: Patient was awake, alert, responding appropriately to questions HEENT: PERRLA, EOMI, Neck soft supple, trachea midline CV: +S1/S2, RRR, no murmurs auscultated Respiratory: CTAB, no wheezes, rales, rhonchi GI: +bowel sounds x4, soft, compressible, non TTP EXT: no c/c/e Neuro: CN II-XII grossly intact Psych: mood and affect were appropriate LABS & DIAGNOSTICS Hematology Results from last 7 days Lab Units 01/16/21 1454 WBC AUTO x10e3/uL 7.4 HEMOGLOBIN g/dL 13.1 HEMATOCRIT % 39.7 MCV fL 90 PLATELETS AUTO x10e3/uL 162 Chemistries Results from last 7 days Lab Units 01/16/21 1454 SODIUM mmol/L 139 POTASSIUM mmol/L 3.6 CHLORIDE mmol/L 104 CO2 mmol/L 24 BUN mg/dL 12.0 CREATININE mg/dL 0.73 GLUCOSE mg/dL 148* CALCIUM, SERUM mg/dL 9.6 AST U/L 23 ALT U/L 20 BILIRUBIN TOTAL mg/dL 0.4 ALBUMIN g/dL 4.1 TOTAL PROTEIN g/dL 7.6 Estimated Creatinine Clearance: 50.4 mL/min (by C-G formula based on SCr of 0.73 mg/dL). Cardiac Enzymes: Results from last 7 days Lab Units 01/16/21 1454 TROPONINT ug/L <0.010 Covid test: Negative Microbiology: Covid test: Negative IMAGING No results found. Electronically signed by: Joseph Florez MD 01/16/2021 3:43 PM Portions of today's documentation have been created with the assistance of voice recognition software. Therefore, it may contain anomalous punctuation, anomalous independent misrecognitions, word substitutions, insertions or omissions. Occasional wrong-word or phonetically similar substitutions may also occur, all due to the inherent limitations of voice recognition software. Attempts to correct the above have been made by Joseph Florez MD but it is recommended that the chart be read carefully to recognize, using context, where the substitutions may have occurred. documented in this encounter Nursing Notes Nicole Solorzano RN - 01/17/2021 6:10 PM PDT Patient tolerated bedrest well, denies pain or any discomfort. Radial access remains soft, none-tender with no hematoma or signs of bleed. She ambulated to the bathroom and tolerated well. Report called to Adrienne. Patient transferred to 2002 at 1950 and bed side check completed with Janny. 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 Tolerated well and report received from [facility] nurse at 1806 1901- patient has not arrived from [facility] report given to next shift RN documented in this encounter ED Notes Yousuf Rogers RN - 01/16/2021 2:34 PM PDT Pt sent in from Cardiology for abnormal Stress Test. Pt denies CP only when exercising. awrence Karimi MD - 01/16/2021 2:31 PM PDT EMERGENCY DEPARTMENT ENCOUNTER Patient Name: Amita Gloria : 1950 Room #: Room [facility] Visit Date: 01/16/2021 Mode of Arrival:Car Accompanied by: Self Primary Care Provider: Maliha Ambrocio CHIEF COMPLAINT Chief Complaint Patient presents with ??? Chest Pain History of Present Illness: Amita Gloria is a 70 y.o. female without reported PMHx who presents to the ED for evaluation of chest pain. Patient reports that she had a stress test at [facility] earlier this morning. She reports having intermittent left-sided chest pain throughout the past several months, and was referred for this study after having multiple T-wave abnormalities on an ECG last month. Her pain is markedly worse with exertion and resolves when at rest. She reports that she had significant pain while on the treadmill today and was referred to the emergency department by cardiology as this was reported to be an abnormal study. She is without pain currently. She denies any recent fever, lightheadedness, cough, sore throat, vomiting, diarrhea, nor other focal concerns. Chief complaint: Chest pain Duration: Today Timing: Acute Location: Left chest Quality: Painful Severity: Moderate Modifying Factors: Worse with exertion Associated Symptoms: None reported Context: Had abnormal stress test this morning. Primary Care Provider: Maliha Ambrocio Past Medical History: Pertinent past medical, surgical, family, and social history reviewed, negative except as noted below. Allergies reviewed. History reviewed. No pertinent past medical history. History reviewed. No pertinent surgical history. History reviewed. No pertinent family history. Social History Tobacco Use ??? Smoking status: Not on file Substance and Sexual Activity ??? Alcohol use: Not on file ??? Drug use: Not on file ??? Sexual activity: Not on file Allergies Allergen Reactions ??? Clindamycin Hives ??? Penicillins Hives ??? Sulfa (Sulfonamide Antibiotics) Hives Review of Systems: Review of Systems Constitutional: Positive for activity change. Negative for chills, diaphoresis and fever. HENT: Negative for sore throat. Eyes: Negative for visual disturbance. Respiratory: Positive for shortness of breath. Negative for cough. Cardiovascular: Positive for chest pain. Gastrointestinal: Negative for diarrhea and vomiting. Endocrine: Negative for polyuria. Genitourinary: Negative for difficulty urinating. Musculoskeletal: Negative for back pain. Skin: Negative for rash. Neurological: Negative for dizziness, syncope and light-headedness. Physical Exam: ED Triage Vitals [01/16/21 1436] Temp Heart Rate Resp BP SpO2 37 ??C (98.6 ??F) 79 13 134/70 99 % Temp Source Heart Rate Source Patient Position BP Location FiO2 (%) Oral -- -- -- -- Physical Exam Vitals and nursing note reviewed. Constitutional: Appearance: She is well-developed. HENT: Head: Normocephalic and atraumatic. Eyes: Extraocular Movements: Extraocular movements intact. Cardiovascular: Rate and Rhythm: Normal rate and regular rhythm. Pulses: Normal pulses. Heart sounds: Normal heart sounds. No murmur heard. Pulmonary: Effort: Pulmonary effort is normal. No respiratory distress. Breath sounds: Normal breath sounds. Abdominal: Palpations: Abdomen is soft. Tenderness: There is no abdominal tenderness. Musculoskeletal: General: No tenderness. Normal range of motion. Cervical back: Normal range of motion. Right lower leg: No edema. Left lower leg: No edema. Skin: General: Skin is warm and dry. Neurological: Mental Status: She is alert and oriented to person, place, and time. Psychiatric: Mood and Affect: Mood normal. Behavior: Behavior normal. Labs: Labs Reviewed COMPREHENSIVE METABOLIC PANEL - Abnormal Result Value Sodium 139 Potassium 3.6 Chloride 104 CO2 24 Anion Gap 11 BUN 12.0 Creatinine 0.73 Glucose, Serum 148 (*) Calcium 9.6 AST 23 ALT 20 Alkaline Phosphatase 96 Total Protein 7.6 eGFR (CKD-EPI) 85 Albumin 4.1 Bilirubin, Total 0.4 BUN/Creatinine Ratio 16.4 PARTIAL THROMBOPLASTIN TIME, ACTIVATED - Abnormal aPTT 34.8 (*) POCT GLUCOSE - Abnormal POCT Glucose, Blood 148 (*) COMPLETE BLOOD COUNT WITH DIFF RESULT - Abnormal WBC Auto 7.4 RBC 4.39 Hemoglobin 13.1 Hematocrit 39.7 MCV 90 MCH 29.8 MCHC 33.0 RDW 12.6 Platelets 162 MPV 11.8 (*) NRBC % 0 Abs. NRBC 0.0 % Neutrophils 60 % Lymphocytes 30 % Monocytes 6 % Eosinophils 3 % Basophils 1 Abs. Neutrophils 4.4 Abs. Lymphocytes 2.2 Abs. Monocytes 0.5 Abs. Eosinophils 0.2 Abs. Basophils 0.1 Abs. Neutrophils (Auto) 4,400.0 RESPIRATORY PCR PANEL (INCLUDES SARS-COV-2 (COVID-19)) - Normal Adenovirus Detection by PCR Not Detected Coronavirus 229E Detection by PCR Not Detected Coronavirus HKU1 Detection by PCR Not Detected Coronavirus NL63 Detection by PCR Not Detected Coronavirus OC43 Detection by PCR Not Detected SARS-CoV-2 (COVID-19) Qual PCR Not Detected Metapneumovirus PCR Not Detected Rhinovirus/Enterovirus PCR Not Detected Influenza A PCR Not Detected Influenza B PCR Not Detected Parainfluenza 1 PCR Not Detected Parainfluenza 2 PCR Not Detected Parainfluenza 3 PCR Not Detected Parainfluenza 4 PCR Not Detected Respiratory Syncytial Virus PCR Not Detected Bordetella parapertussis (DS2480) PCR Not Detected Bordetella pertussis PCR Not Detected Chlamydia pneumoniae PCR Not Detected Mycoplasma pneumoniae PCR Not Detected Narrative: ADVERTISING DISPLAY ROTATOR swab is the only specimen type cleared by the FDA. Nasal wash, tracheal aspirate, and bronchial lavage specimen types have not been cleared by the FDA. Therefore results on any specimen type other than nasopharyngeal are considered investigational testing only. TROPONIN - Normal Troponin T <0.010 PROTHROMBIN TIME INR - Normal Prothrombin Time 13.3 INR 1.0 COMPLETE BLOOD COUNT WITH DIFF Narrative: The following orders were created for panel order CBC with diff. Procedure Abnormality Status --------- ------ Complete blood count with...[[id number]] Abnormal Final result Please view results for these tests on the individual orders. Diagnostic Imaging: XR CHEST 1 VIEW Final Result IMPRESSION: Unremarkable portable chest for age. Reviewed by: Desmond Martines M.D. on 01/16/2021 at 15:15 EKG: EKG results from 1439 Normal sinus rhythm with a rate of 71 Normal axis Normal intervals T-wave inversions in V1-V2 Overall abnormal ECG With comparison to ECG from 12/22/20, T-wave inversions have improved Reviewed and interpreted by myself contemporaneously, Lawrence Karimi MD Meds Given this Visit: ED Medication Administration from 01/16/2021 1421 to 01/16/2021 1637 Date/Time Order Dose Route Action Action by 01/16/2021 1502 clopidogreL (PLAVIX) tablet 300 mg 300 mg oral Given Nevi, B 01/16/2021 1611 heparin (porcine) injection 3,275 Units 3,275 Units intravenous Given Nevi, B 01/16/2021 1608 heparin 25,000 units in 500 mL 0.45% NS (premix) 12 Units/kg/hr intravenous New Bag Nevi, B 01/16/2021 1502 aspirin chewable tablet 324 mg 324 mg oral Given Janneti, B Procedure(s): Procedures Review of records obtained in care everywhere, chart review and where available Medical Decision Making: ED Course as of Jan 17 1956 Tue Jan 16, 2021 1450 70-year-old otherwise healthy female with no previous cardiac history coming in with 2 to 3 months of worsening exertional chest pain. Initially seen by her PCP in December, EKG showed anterior T waveinversions and was referred for a cardiac stress test which she underwent today. According to her on the treadmill she had severe chest pain. Supposedly this was read as abnormal and she was referredhere by cardiology. On arrival she is pain-free. EKG shows T wave inversions with no evidence of STEMI. I discussed case with Dr. Briceno, cardiology who recommends admission, heparin and cardiac cath tomorrow. DDx includes, is not limited to: CAD, ACS, angina, aortic dissection, PE, anemia, electrolyte derangement [JW] 1532 Labs are unremarkable, normal platelets, negative troponin. Patient remains pain-free, will admit and start heparin, aspirin, Plavix per cardiology request. [JW] ED Course User Index [JW] Lawrence Karimi MD Progress Notes and Consults: 1448: Discussed patient's case with Dr. Brock, cardiology. Recommends admission to hospitalist services, starting heparin, and loading with 300mg Plavix. She will remain NPO after midnight for catheterization in the morning. 1455: Patient rechecked. Discussed all results and plan for admission. Patient understands and agrees with plan. All questions addressed. 1543: Discussed patient's case with hospitalist, Dr. Florez. They agree with the evaluation and accept admission. Last Vitals: BP: 139/71 Temp: 37 ??C (98.6 ??F) Heart Rate: 68 Resp: 17 SpO2: 99 % Impression: 1. Unstable angina (CMS/HCC) Disposition: Admit This note was dictated in part using Ludesi voice dictation software. Please note this may be the source of any grammatical or spelling errors. Scribe attestation: I, Cheko Blanchard, am serving as scribe to document services personally performed by Lawrence Karimi MD based on my observation and the provider's statements to me. Scribe: Cheko Espinoza, scribing for and in the presence of Lawrence Karimi MD. Provider: I Lawrence Karimi MD personally performed the services described in the documentation, reviewed and edited the documentation which was dictated to the scribe in my presence, and it accurately records my words and actions. Electronically signed by: Lawrence Karimi MD, ED Provider 01/16/2021 4:37 PM. Lawrence Karimi MD 01/16/211955 documented in this encounter Miscellaneous Notes Plan of Care - Janny Diaz - 01/18/2021 5:33 AM PDT End of Shift/ Care Plan Summary: Cindi returned from [facility] at ~1949. Report received from YIMI Rivera. Bedside safety check complete, whiteboard updated. Care continues. Neuro: WDL CVS: WDL; VSS Pulm: Room air, SPO2 95% GI/: WDL Pain: No report of pain this shift. Access/Gtt: 1 PIV, SL Psychosocial: WDL Shift Events: 1949 - Pt returned to P[facility] unit from [facility]; right radial site assessed, soft and no signs of bleeding. Pt denies chest pain, SOB, dizziness, nausea/vomiting. 0700 - no changes in right radial site. Report given to day shift RN. Care continues. Problem: Cardiovascular - Adult Goal: Maintains optimal cardiac output and hemodynamic stability Outcome: Progressing Problem: Cardiovascular - Adult Goal: Absence of cardiac dysrhythmias or at baseline Outcome: Progressing Problem: Infection - Adult Goal: Absence of infection during hospitalization Outcome: Progressing ost- Procedure Note - Rajesh Brock MD - 01/17/2021 3:23 PM PDT Special Imaging Postprocedure Note Amita Gloria Physician: Rajesh Brock MD Pharmacologist: None Diagnosis: The encounter diagnosis was Unstable angina (CMS/HCC). Procedure: cath Complications: None Stents/Grafts/Implant: yes; BRANDON to LAD Blood Product Administration: no If yes, see Blood Administration Record Estimated Blood Loss: minimal Anesthesia: no Specimens Removed: no 01/17/2021 3:23 PM nitial Assessments - Prudence Llanes LICSW - 01/17/2021 1:57 PM PDT CASE MANAGEMENT : INITIAL ASSESSMENT Data: Per EMR review, patient is a 70 y.o. female with Payor: [facility] / Plan: [facility] / Product Type: *No Product type* / . PCP is Maliha Ambrocio. Advance directives are not completed- Information Provided. Pt admitted on 01/16/2021 for Unstable angina (CMS/HCC) [I20.0]. Extended Emergency Contact Information Primary Emergency Contact: José Luis Gloria Mobile Relation: Spouse Allied Health Instructor needed? No Secondary Emergency Contact: Laverne Morgan Mobile Relation: Friend Allied Health Instructor needed? No In communication with provider, discharge needs have not been identified. Social Work consults to coordinate discharge services have not been ordered by provider at this time. HYDROMETER FINISHER met with patient and significant other at bedside. Social work role explained, contact information and discharge planning checklist provided. Pt resides in [place] with her spouse in a private home. Pt does not have a history with home health and/or chcf services. Pt does not use any DME. 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 Pt spouse confirmed he will be her transportation home when medically ready. Ptand pt spouse denies any other needs, questions or concerns. No physician orders identified. Assessment: alert and oriented x4. Per HYDROMETER FINISHER interactions, Physician Documentation, and Nursing Documentation, patient has capacity for self care and has decisional capacity at this time. Plan: Anticipated discharge home via POV when medically ready. HYDROMETER FINISHER to continue to follow in case anyneeds arise. 01/17/21 7065 Discharge Planning Chart Reviewed Yes EHR Review The patient has been identified as low risk of requiring posthospital services, please consult Case Management if new needs are identified. Source of Information Patient;Significant Other Initial DC Planning Assessment Yes Lives with Spouse/significant other Support Systems Spouse/significant other Level of [place] Independent in all regards Assistance Needed None Living Arrangements Private residence Mobility Equipment (No DME at baseline) Home Care Services No Patient expects to be discharged to: HOME Has a discharge transport plan been identified? (Pt spouse) Barriers to Discharge No barriers Insurance Coverage Prescription Drug Coverage Patient has prescription drug coverage Are you currenty receiving any VA benefits? No Do you currenty have Consolidator Care insurance? No Anticipated Discharge Needs Anticipated Discharge Needs None needed Anticipated Discharge Destination Home with family Equipment (DME) Recommendations None needed Who can help/be your primary caregiver at discharge? None needed VALENCIA Poole lan of Care - Laurita Garcia RN - 01/17/2021 3:13 AM PDT Identify possible barriers to meeting goals/advancing plan of care: End of Shift/ Care Plan Summary: Pt A/Ox4. VSS. Denies chest pain. Heparin infusing at 11 units/kg/hr. SR on tele. Independent in room. NPO since midnight for L heart cath today. Care continues. Problem: Cardiovascular - Adult Goal: Maintains optimal cardiac output and hemodynamic stability Outcome: Progressing Goal: Absence of cardiac dysrhythmias or at baseline Outcome: Progressing documented in this encounter Plan of Treatment Upcoming Encounters Date Type Specialty Care Team Description 02/16/2021 Office Visit Cardiology Rajesh Brock MD [address] [facility] [address] [place] [address] Scheduled Referrals Name Type Priority Associated Order Schedule Diagnoses Ambulatory Referral to Outpatient Routine Unstable angina 1 Occurrences Cardiac Rehabilitation Referral ([facility]) start ing 01/17/2021 unti l 07/19/2021 documented as of this encounter Implants Implanted Type Area Grip Boss Device Identifier Shelf Exp iration Model / Date Serial / L ot Stent,Resol Groton Rx 2.0*22mm - [id number] Medtronic [id number] / Implanted: Qty: 1 on 01/17/2021 at [facility] / Stent Xience [place] 2.50*28 - [id number] / Implanted: Qty: 1 on 01/17/2021 at [facility] / Stent Xience [place] 3.0*18 - [id number] [id number] / Implanted: Qty: 1 on 01/17/2021 at [facility] / documented as of this encounter Procedures Procedure Name Priority Date/Time Associated Comments Diagnosis DISCHARGE PATIENT Routine 01/18/2021 11:05 AM PDT COMPLETE BLOOD COUNT Routine 01/18/2021 9:11 Res ults for this AM PDT procedure are i n the results section. MAGNESIUM Routine 01/18/2021 9:11 Results for this AM PDT procedure are i n the results section. LIPID PANEL Add-On 01/18/2021 9:11 Results for this AM PDT procedure are i n the results section. COMPREHENSIVE METABOLIC Routine 01/18/2021 9:11 Results for this PANEL AM PDT procedure are i n the results section. ECG 12-LEAD STAT 01/17/2021 4:39 Results for this PM PDT procedure are i n the results section. SI LEFT HEART CATH Routine 01/17/2021 3:31 Resul ts for this PM PDT procedure are i n the results section. HEPARIN ANTI-XA (UFH) Timed 01/17/2021 5:50 Re sults for this UNFRACTIONATED AM PDT procedure are in the results section. COMPLETE BLOOD COUNT Routine 01/17/2021 5:50 Res ults for this WITH DIFF RESULT AM PDT procedure a re in the results section. COMPLETE BLOOD COUNT Routine 01/17/2021 5:50 Res ults for this WITH DIFF AM PDT procedure are i n the results section. TROPONIN Routine 01/17/2021 5:50 Results for this AM PDT procedure are i n the results section. COMPREHENSIVE METABOLIC Routine 01/17/2021 5:50 Results for this PANEL AM PDT procedure are i n the results section. HEPARIN ANTI-XA (UFH) STAT 01/16/2021 9:02 Re sults for this UNFRACTIONATED PM PDT procedure are in the results section. XR CHEST 1 VIEW STAT 01/16/2021 4:09 Results for this PM PDT procedure are i n the results section. RESPIRATORY PCR PANEL STAT 01/16/2021 3:05 Re sults for this (INCLUDES SARS-COV-2 PM PDT procedu re are in (COVID-19)) the results section. POCT GLUCOSE STAT 01/16/2021 2:59 Results for this PM PDT procedure are i n the results section. COMPLETE BLOOD COUNT STAT 01/16/2021 2:54 Res ults for this WITH DIFF RESULT PM PDT procedure a re in the results section. PARTIAL THROMBOPLASTIN STAT 01/16/2021 2:54 R esults for this TIME, ACTIVATED PM PDT procedure ar e in the results section. PROTHROMBIN TIME STAT 01/16/2021 2:54 Results for this PM PDT procedure are i n the results section. COMPLETE BLOOD COUNT STAT 01/16/2021 2:54 Res ults for this WITH DIFF PM PDT procedure are i n the results section. TROPONIN STAT 01/16/2021 2:54 Results for this PM PDT procedure are i n the results section. COMPREHENSIVE METABOLIC STAT 01/16/2021 2:54 Results for this PANEL PM PDT procedure are i n the results section. ECG 12-LEAD STAT 01/16/2021 2:39 Results for this PM PDT procedure are i n the results section. TELEMETRY EXTERNAL 01/16/2021 Results f or this RESULTS procedure are i n the results section. CARDIAC STRESS EXTERNAL 01/16/2021 Resu lts for this RESULTS procedure are i n the results section. documented in this encounter Results Lipid panel (01/18/2021 9:11 AM PDT) Triglycerides Level 80 <150 mg/dL [facility] Total Cholesterol 227 (H) <200 mg/dL [facility] LDL Cholesterol, 137 (H) <100 mg/dL [facility] Calculated HOSPITAL LAB HDL Cholesterol 74 >=60 mg/dL [facility] VLDL Cholesterol 16 No Reference Range [facility] Established mg/dL HOSPITAL LAB CHOL/HDL Ratio 3.1 No Reference Range [facility] Cholesterol Ratio 1.9 No Reference Range [facility] (LDL/HDL) Established ratio HOSPITAL LAB units Non-HDL Cholesterol, 153 (H) <130 mg/dl [facility] Specimen Blood - Venous blood (substance) Narrative Performed At ?NATIONAL CHOLESTEROL G UIDELINES [facility] ([facility]) guidel phoebe for classification, testing and management of choleste rol levels in adults over 20 years of age. This new classification creates three categories of risk for coronary heart disease, regardless of age or sex, according to total and LDL cholesterol levels: ? Based on total cholester ol level Desirable ?<200 mg/dl Borderline-high ?200-239 mg/dl High ? >=240 mg/dl ? Based on cholesterol rat io CHD RISK ? C HOL/HDL RATIO ---- -- ? MALE ?FEMALE 0.5 x Average ?3.4 ?3.3 1.0 x Average ?5.0 ?4.4 2.0 x Average ?9.6 ?7.1 3.0 x Average ?13.5 ? 11.0 Performing Organization Address [facility] [address] [facility] [address] Magnesium (01/18/2021 9:11 AM PDT) Pathologist Sig nature Magnesium 1.9 1.6 - 2.6 mg/dL [facility] B Specimen Blood - Venous blood (substance) Performing Organization Address [facility] [address] [facility] [address] Comprehensive Metabolic Panel (01/18/2021 9:11 AM PDT) Pathologist Sig nature Sodium 138 134 - 144 mmol/L [facility] Potassium 4.0 3.5 - 5.2 mmol/L [facility] Chloride 104 97 - 108 mmol/L [facility] CO2 24 18 - 29 mmol/L [facility] Anion Gap 10 3 - 11 mmol/L [facility] BUN 12.0 8.0 - 27.0 mg/dL [facility] Creatinine 0.71 0.57 - 1.00 [facility] mg/dL [facility] Glucose, Serum 106 (H) 65 - 99 mg/dL [facility] Calcium 9.4 8.5 - 10.1 mg/dL [facility] AST 19 0 - 50 U/L [facility] ALT 15 0 - 32 U/L [facility] Alkaline Phosphatase 87 25 - 165 U/L [facility] Total Protein 7.1 6.4 - 8.4 g/dL [facility] eGFR (CKD-EPI) 88 >60 (CKD-EPI) [facility] mL/min/1.73 m2 HOSPITAL LAB Albumin 4.0 3.4 - 5.0 g/dL [facility] Bilirubin, Total 0.9 <=1.2 mg/dL [facility] BUN/Creatinine Ratio 16.9 7.0 - 24.0 [facility] Specimen Blood - Venous blood (substance) Performing Organization Address [facility] [address] [facility] A [id number] Complete blood count (01/18/2021 9:11 AM PDT) Pathologist Sig nature WBC Auto 8.2 3.8 - 10.1 x10e3/uL [facility] RBC 4.14 3.90 - 5.20 x10e6/uL [facility] Hemoglobin 12.3 12.0 - 15.6 g/dL [facility] Hematocrit 37.8 35.0 - 46.0 % [facility] MCV 91 81 - 100 fL [facility] MCH 29.7 27.0 - 35.0 pg [facility] MCHC 32.5 32.0 - 37.0 g/dL [facility] RDW 12.7 12.3 - 15.4 % [facility] Platelets 164 150 - 400 x10e3/uL [facility] MPV 11.4 (H) 7.4 - 10.4 fL [facility] NRBC % 0 0 /100 WBCs [facility] Abs. NRBC 0.0 x10e3/uL [facility] Specimen Blood - Venous blood (substance) Performing Organization Address [facility] [address] [facility] A [id number] ECG 12 lead- now if intervention performed (01/17/2021 4:39 PM PDT) Pathologist Sig nature HR 57 bpm [facility] RR 1,056 ms [facility] MT 173 ms [facility] QRSD 103 ms [facility] QT 427 ms [facility] QTc 416 ms [facility] QRS 69 deg [facility] T 22 deg [facility] Impression - BORDERLINE ECG - [facility] Impression Sinus rhythm with [facility] sinus bradycardia and some nonspecific ST-T changes. Impression Probable left atrial [facility] M enlargement Impression When compared with ECG [facility] TEM of 16-Jan-2021 14:39:53, Impression Sinus rate has [facility] decreased. Specimen Narrative Performed At This result has an attachment that is no t available. Performing Organization Address City/State/ZIP Code Phon e Number [facility] [address] [place] [address] SI LEFT HEART CATH (01/17/2021 3:31 PM PDT) Specimen Narrative Performed At This result has an attachment that is no t available. DATE OF SURGERY: 01/17/2021 [facility] PROCEDURE: 1. ??Selective right and left coronary angiography. 2. ??Left heart catheterization. 3. ??Percutaneous intervention on a chronically ?occluded left anterior descending. 4. ??Ultrasound guidance for access. 5. ??Supervision for moderate sedation. INDICATION: Unstable angina. PROCEDURAL DETAILS: Please refer to the procedure log. The patient was given moderate sedation with IV versed and fentanyl by a dedicated nurse under my [id number] supervision using physiological monitoring for the dur ation of the procedure. Briefly, it was done via right radial approach using a 6-Ivorian system. ANGIOGRAPHIC FINDINGS: 1. ??This right coronary artery is a large dominant ?vessel. ??It has mild luminal irregularities. ?? No ?critical disease is noted. ??Collaterals faintly fill the LAD. 2. ??Left main: ??No significant disease. 3. ??Circumflex is nondominant. ??It is has mild ?luminal irregularities, but no critical stenosis . 4. ??LAD is totally occluded in its midportion past ?the takeoff of a small septal branch. ??The rest of the ?LAD fills via intracoronary collaterals as well. 5. ??Left heart catheterization revealed an LVEDP of 5. ??There was no gradient upon pullback. INTERVENTIONAL DETAILS: We tried to recanalize this ve ssel with a Terumo wire however it would not cross. ??We us ed a 1.5 mm Takeru balloon and this gave us additional push ability and we were able to cross the distal fibrous c ap as well. ??Following that, balloon angioplasty was done initially with a 1.5 balloon. ??There was significant dissection at the point of BOBBIN COLLECTOR. ??This is not unexpect ed. We then did further inflations with a 2.0 balloon. Finally, we stented the mid LAD with a 2.5 x 28 mm vivi nt. Proximal to that a 3.0 x 18 mm stent was delivered. ?? At the distal edge of the 2.5 balloon there was further plaqu e shift and dissection. ??We tacked this up with a 2.0 x 20 mm Groton drug coated stent. ??Of note, the rest of the vivi nts were Xience. ??At this point we had deployed 3 stents. ??To summarize distally a 2.0 x 20 [place], followed by 2.5 x 28 Xience followed by 3.0 x 18 Xience. ??Overlapping infl ations were done with a noncompliant balloon distally. ??Arielle sanz angiographic results were excellent. ??In summary, successful recanalization of a totally occluded LAD. ? ?The patient is advised dual antiplatelet therapy for at le ast 6 months post procedure. Performing Organization Address City/State/ZIP Code Phon e Number [facility] [address] [place] [address] Complete blood count with diff (01/17/2021 5:50 AM PDT) Pathologist Sig nature WBC Auto 6.0 3.8 - 10.1 [facility] x10e3/uL HOSPITAL LAB RBC 4.46 3.90 - 5.20 [facility] x10e6/uL [facility]ITAL LAB Hemoglobin 13.1 12.0 - 15.6 [facility] g/dL HOSPITAL LAB Hematocrit 39.8 35.0 - 46.0 % [facility] MCV 89 81 - 100 fL [facility] MCH 29.4 27.0 - 35.0 pg [facility] MCHC 32.9 32.0 - 37.0 [facility] g/dL HOSPITAL LAB RDW 12.5 12.3 - 15.4 % [facility] Platelets 164 150 - 400 [facility] x10e3/uL [facility] MPV 12.0 (H) 7.4 - 10.4 fL [facility] NRBC % 0 0 /100 WBCs [facility] Abs. NRBC 0.0 x10e3/uL [facility] % Neutrophils 53 % [facility] % Lymphocytes 33 % [facility] % Monocytes 7 % [facility] % Eosinophils 6 % [facility] % Basophils 1 % [facility] Abs. Neutrophils 3.2 1.6 - 6.9 [facility] x10e3/uL [facility] Abs. Lymphocytes 2.0 1.1 - 4.8 [place] [id number] Abs. Monocytes 0.4 0.0 - 1.0 [place] [id number] Abs. Eosinophils 0.4 0.0 - 0.[address] [place] [id number] LAB Abs. Basophils 0.1 0.0 - 0.4 [place] [id number]/[facility] LAB Abs. Neutrophils 3,200.0 1,600.0-6,900.0 [facility] (Auto) / HOSPITAL LAB Specimen Blood - Venous blood (substance) Performing Organization Address [facility] [address] [facility] [address] Heparin Anti-Xa, Unfractionated (UFH) (01/17/2021 5:50 AM PDT) Heparin Anti-Xa 0.39Comment: 0.30 - 0.70 [facility] UF Consult with the IU/mL HOSPITAL LAB Pharmacy for updated Heparin protocols. Specimen Blood - Venous blood (substance) Performing Organization Address [facility] [address] [facility] A [phone] Troponin (01/17/2021 5:50 AM PDT) Pathologist Sig nature Troponin T <0.010 <0.020 ug/L [facility] Comment: HOSPITAL LAB Note: Reference Ranges revised July 27, 2020 Note: Critical Value parameters revised July 27, 2020. Specimen Blood - Venous blood (substance) Performing Organization Address City/State/ZIP Code Phon e Number [facility] [address] [facility] [place] [phone] Comprehensive Metabolic Panel (01/17/2021 5:50 AM PDT) Pathologist Sig nature Sodium 140 134 - 144 mmol/L [facility] Potassium 3.8 3.5 - 5.2 mmol/L [facility] Chloride 107 97 - 108 mmol/L [facility] CO2 22 18 - 29 mmol/L [facility] Anion Gap 11 3 - 11 mmol/L [facility] BUN 10.0 8.0 - 27.0 mg/dL [facility] Creatinine 0.65 0.57 - 1.00 [facility] mg/dL [facility] Glucose, Serum 103 (H) 65 - 99 mg/dL [facility] Calcium 9.3 8.5 - 10.1 mg/dL [facility] AST 20 0 - 50 U/L [facility] ALT 18 0 - 32 U/L [facility] Alkaline Phosphatase 86 25 - 165 U/L [facility] Total Protein 7.0 6.4 - 8.4 g/dL [facility] eGFR (CKD-EPI) 92 >60 (CKD-EPI) [facility] mL/min/1.73 m2 [facility] Albumin 4.0 3.4 - 5.0 g/dL [facility] Bilirubin, Total 0.8 <=1.2 mg/dL [facility] BUN/Creatinine Ratio 15.4 7.0 - 24.0 [facility] Specimen Blood - Venous blood (substance) Performing Organization Address City/State/ZIP Code Phon e Number [facility] [address] [facility] [place] [phone] Heparin Anti-Xa, Unfractionated (UFH) (01/16/2021 9:02 PM PDT) Heparin Anti-Xa 0.62Comment: 0.30 - 0.70 [facility] UF Consult with the IU/mL HOSPITAL LAB Pharmacy for updated Heparin protocols. Specimen Blood - Venous blood (substance) Performing Organization Address City/State/ZIP Code Phon e Number [facility] [address] [facility] [address] XR CHEST 1 VIEW (01/16/2021 4:09 PM PDT) Specimen Narrative Performed At [facility] [place]. [address] PATIENT NAME: AMITA GLORIA : 1950 GENDER: F EXAM DATE: 01/16/2021 ?? 15:42 ORDERED FROM: [facility] ORDERING PHYSICIAN: LAWRENCE KARIMI CC: ??-- ??- ??- ??- CONTRAST: ? [place] STATION ID: [id number] mGy: PROCEDURE: ??XR CHEST 1 VIEW INDICATIONS: ??chest pain TECHNIQUE: ??One view of the chest was a cquired. ?? COMPARISON: ??None. FINDINGS: ?? Surgical changes and devices: ??None. ?? Lungs and pleura: ??On this semiupright portable chest examination, no large pneumothorax or large pleural effusions are seen. ??No focal infiltrat es are seen. ?? Mediastinum: ??Mediastinal contours appear normal. ??Heart size is normal. ?? Bones and chest wall: ??No suspicious bony lesions. ??Age-appropriate bony degenerative changes are seen. ??Overlying soft tissues appear unremark able. ?? IMPRESSION: ??Unremarkable portable ches t for age. Reviewed by: Desmond Martines M.D. on 01/16/2021 at 15 :15 ? Approved by: Desmond Martines M.D. on 01/16/2021 at 15 :15 ? Procedure Note Interface, Radiology Results In - 2020 4:16 [place]. [address] PATIENT NAME: AMITA GLORIA : 1950 GENDER: F EXAM DATE: 01/16/2021 15:42 ORDERED FROM: [facility] ORDERING PHYSICIAN: LAWRENCE KARIMI CC: -- - - - CONTRAST: [place] STATION ID: [id number] mGy: PROCEDURE: XR CHEST 1 VIEW INDICATIONS: chest pain TECHNIQUE: One view of the chest was ac quired. COMPARISON: None. FINDINGS: Surgical changes and devices: None. Lungs and pleura: On this semiupright p ortable chest examination, no large pneumothorax or large pleural effusions are seen. No focal infiltrates are seen. Mediastinum: Mediastinal contours appea r normal. Heart size is normal. Bones and chest wall: No suspicious bon y lesions. Age-appropriate bony degenerative changes are seen. Overlying soft tissues appear unremarkable. IMPRESSION: Unremarkable portable chest for age. Reviewed by: Desmond Martines M.D. on at 15:15 Approved by: Desmond Martines M.D. on at 15:15 Performing Organization Address City/State/ZIP Code [facility] e Number [facility] [address] [place], [place] [id number] Respiratory PCR panel (includes SARS-COV-2 (COVID-19)) (01/16/2021 3:05 PM PDT) Adenovirus Detection Not Detected Not Detected [facility] by PCR [facility] Coronavirus 229E Not Detected Not Detected [facility] Detection by PCR [facility]ITAL [facility] Coronavirus HKU1 Not Detected Not Detected [facility] Detection by PCR [facility]ITAL [facility] Coronavirus NL63 Not Detected Not Detected [facility] Detection by PCR [facility]ITAL [facility] Coronavirus OC43 Not Detected Not Detected [facility] Detection by PCR HOS[facility]ITAL LAB SARS-CoV-2 (COVID-19) Not Detected Not Detected [facility] Qual PCR Comment: HOSPITAL LAB PLEASE NOTE: The SARS-CoV-2 PCR included in the RVP2.1 has been released under EUA federal guidelines. ??FDA approval is pending agency evaluation. Metapneumovirus PCR Not Detected Not Detected [facility] Rhinovirus/Enteroviru Not Detected Not Detected [facility] s PCR [facility] Influenza A PCR Not Detected Not Detected [facility] Influenza B PCR Not Detected Not Detected [facility] Parainfluenza 1 PCR Not Detected Not Detected [facility] Parainfluenza 2 PCR Not Detected Not Detected [facility] Parainfluenza 3 PCR Not Detected Not Detected [facility] Parainfluenza 4 PCR Not Detected Not Detected [facility] Respiratory Syncytial Not Detected Not Detected [facility] Virus PCR HOSPITAL LAB Bordetella Not Detected Not Detected [facility] parapertussis [facility] ([id number]) PCR Bordetella pertussis Not Detected Not Detected [facility] PCR Comment: HOSPITAL LAB BioFire RVP2.1 should not be used if B. pertussis infection is specifically suspected; a B. pertussis molecular test that is FDA-cleared for use on patients suspected of having a respiratory tract infec tion attributable to B. pertussis should be used inste ad. This PCR result is considere d a presumptive test. ??Please order [id number]- B.PERTUSSIS/B.PARAPERTUSSIS PCR (SENDOUT)([facility] test code [id number]) if clinical manifestations warrant further confirmatory testing for Bordetella pertussis (whooping cough). The BioFire RP2.1 detects a single-copy Pertussis toxin promoter target. Other PCR tests for B. pertussis target the multi-copy [id number] insertion sequence and are therefore capable of detecting lower levels. There is a risk of false pos itive results for Bordetella species and Human Rhinovirus/Enterovirus due to non-specific amplification and cross-reactivity with organisms that can be found in the respiratory tract. Chlamydia pneumoniae Not Detected Not Detected [facility] Mycoplasma pneumoniae Not Detected Not Detected [facility] Specimen Aspirate - Nasopharyngeal structure (bod y structure) Narrative Performed At ADVERTISING DISPLAY ROTATOR swab is the only specimen type cleared by the FDA. [facility] Nasal wash, tracheal aspirate, and bronchial lavage specimen types have not been cleared by the FDA. Theref ore results on any specimen type other than nasopharyngeal are considered investigational testing only. Performing Organization Address City/State/ZIP Code Phon e Number [facility] [address] [facility] [address] POCT glucose (01/16/2021 2:59 PM PDT) Pathologist [facility] POCT Glucose, Blood 148 (A) 65 - 99 mg/dL [facility] POCT (CLIA [id number]) Specimen Blood - Capillary blood (substance) Performing Organization Address City/State/ZIP Code Phon e Number [facility] [address] [facility] [place] [address] POCT (CLIA [id number]) Complete blood count with diff (01/16/2021 2:54 PM PDT) [facility] WBC Auto 7.4 3.8 - 10.1 [facility] x10e3/uL [facility] RBC 4.39 3.90 - 5.20 [facility] x10e6/uL [facility] Hemoglobin 13.1 12.0 - 15.6 [facility] g/dL [facility] Hematocrit 39.7 35.0 - 46.0 % [facility] MCV 90 81 - 100 fL [facility] MCH 29.8 27.0 - 35.0 pg [facility] MCHC 33.0 32.0 - 37.0 [facility] g/dL [facility] RDW 12.6 12.3 - 15.4 % [facility] Platelets 162 150 - 400 [place] [id number]/uL [facility] MPV 11.8 (H) 7.4 - 10.4 fL [facility] NRBC % 0 0 /100 WBCs [facility] Abs. NRBC 0.0 x10e3/uL [facility] % Neutrophils 60 % [facility] % Lymphocytes 30 % [facility] % Monocytes 6 % [facility] % Eosinophils 3 % [facility] % Basophils 1 % [facility] Abs. Neutrophils 4.4 1.6 - 6.9 [facility] x10e3/uL [facility] Abs. Lymphocytes 2.2 1.1 - 4.8 [facility] x10e3/uL [facility] Abs. Monocytes 0.5 0.0 - 1.0 [facility] x10e3/uL HOSPITAL LAB Abs. Eosinophils 0.2 0.0 - 0.5 [place] [id number]/uL [facility] Abs. Basophils 0.1 0.0 - 0.4 [facility] x10e3/uL HOSPITAL LAB Abs. Neutrophils 4,400.0 1,600.0-6,900.0 [facility] (Auto) /uL HOSPITAL LAB Specimen Blood - Venous blood (substance) Performing Organization Address [facility] [address] [facility] [address] [id number] APTT (01/16/2021 2:54 PM PDT) Pathologist Sig nature aPTT 34.8 (H)Comment: 23.5 - 33.7 sec [facility] Consult with the HOSPITAL LAB Pharmacy for updated Heparin protocols. Specimen Blood - Venous blood (substance) Performing Organization Address [facility] [address] A [id number] Protime-INR (01/16/2021 2:54 PM PDT) Prothrombin Time 13.3 11.9 - 15.0 [facility] sec HOSPITAL LAB INR 1.0 0.8 - 1.2 [facility] Comment: HOSPITAL LAB Therapeutic Ranges: Low intensity therapy ? INR 1.5- 2.0 ?? Mod. intensity therapy ? INR 2.0 - 3.0 High intensity therapy (1) INR 2.5 - 3.5 High intensity therapy (2) INR 3.0 - 4.0 Critical value INR ? INR >5.9 ?? Specimen Blood - Venous blood (substance) Performing Organization Address [facility] [address] [facility] [place] [address] Troponin (01/16/2021 2:54 PM PDT) Pathologist Sig nature Troponin T <0.010 <0.020 ug/L [facility] Comment: HOSPITAL LAB Note: Reference Ranges revised July 27, 2020 Note: Critical Value parameters revised July 27, 2020. Specimen Blood - Venous blood (substance) Performing Organization Address [facility] [address] [facility] [address] [id number] CMP (01/16/2021 2:54 PM PDT) Pathologist Sig nature Sodium 139 134 - 144 mmol/L [facility] Potassium 3.6 3.5 - 5.2 mmol/L [facility] Chloride 104 97 - 108 mmol/L [facility] CO2 24 18 - 29 mmol/L [facility] Anion Gap 11 3 - 11 mmol/L [facility] BUN 12.0 8.0 - 27.0 mg/dL [facility] Creatinine 0.73 0.57 - 1.00 [facility] mg/dL [facility] Glucose, Serum 148 (H) 65 - 99 mg/dL [facility] Calcium 9.6 8.5 - 10.1 mg/dL [facility] AST 23 0 - 50 U/L [facility] ALT 20 0 - 32 U/L [facility] Alkaline Phosphatase 96 25 - 165 U/L [facility] Total Protein 7.6 6.4 - 8.4 g/dL [facility] eGFR (CKD-EPI) 85 >60 (CKD-EPI) [facility] mL/min/1.73 m2 [facility] Albumin 4.1 3.4 - 5.0 g/dL [facility] Bilirubin, Total 0.4 <=1.2 mg/dL [facility] BUN/Creatinine Ratio 16.4 7.0 - 24.0 [facility] Specimen Blood - Venous blood (substance) Performing Organization Address City/State/ZIP Code Phon e Number [facility] [address] [facility] [place] [address] ECG 12 lead (01/16/2021 2:39 PM PDT) Pathologist Sig nature HR 71 bpm [facility] RR 848 ms [facility] MT 159 ms [facility] QRSD 100 ms [facility] QT 376 ms [facility] QTc 408 ms [facility] QRS 48 deg [facility] T 30 deg [facility] Impression - ABNORMAL ECG - [facility] Impression Sinus rhythm [facility] Impression Probable left atrial [facility] enlargement, some nonspecific ST-T changes. Impression No previous ECG [facility] available for comparison Specimen Narrative Performed At This result has an attachment that is no t available. Performing Organization Address City/State/ZIP Code Phon e Number [facility] [address] [place] [address] TELEMETRY EXTERNAL RESULTS (01/16/2021) Narrative Performed At This result has an attachment that is no t available. Ordered by an unspecified provider. CARDIAC STRESS EXTERNAL RESULTS (01/16/2021) Narrative Performed At This result has an attachment that is no t available. Ordered by an unspecified provider. documented in this encounter Visit Diagnoses Diagnosis Unstable angina ([facility]) - Primary Intermediate coronary syndrome Acute ST elevation myocardial infarction (STEMI) due to occlusion of distal portion of left anterior descending (LAD) rivas ry artery ([facility]) documented in this encounter Administered Medications Inactive Administered Medications - up to 3 most recent administrations Medication Order MAR Action Action Date Dose Rate Site aspirin chewable tablet 324 mg Given 01/16/2021 3:02 PM PDT 324 mg 324 mg, oral, Once, On Fri01/16/21 at 1457, For 1 dose, Dispense four 81mg tablets aspirin chewable tablet 81 mg Given 01/18/2021 8:31 AM PDT 81 mg 81 mg, oral, Daily, First dose on Fri01/18/21 at 0900, Postprocedure (SI) atorvastatin (LIPITOR) tablet 40 mg 40 mg, oral, Nightly, First dose on Fri01/18/21 at 210 0 atropine injection (abboject) 0.5-1 mg 0.5-1 mg, intravenous, Every 5 min PRN, bradycardia, s ymptomatic bradycardia, Starting on Fri01/17/21 at 1546, Postprocedure (SI), Re peat as directed. clopidogreL (PLAVIX) tablet 300 mg Given 01/16/2021 3:02 PM PDT 300 mg 300 mg, oral, Once, On Fri01/16/21 at 1451, For 1 dose clopidogreL (PLAVIX) tablet 75 mg Given 01/18/2021 8:31 AM PDT 75 mg 75 mg, oral, Daily, First dose on Fri01/18/21 at 0900, Postprocedure (SI) clopidogreL (PLAVIX) tablet Given 01/17/2021 3:23 PM PDT 150 mg oral, Code/trauma/sedation medication, Starting on Fri01/17/21 at 1523 fentaNYL (SUBLIMAZE) injection Given 01/17/2021 3:24 PM PDT 50 mcg intravenous, Code/trauma/sedation medication, Starting on Fri01/17/21 at 1440 Given 01/17/2021 2:59 PM PDT 50 mcg Given 01/17/2021 2:40 PM PDT 100 mcg flumazeniL (ROMAZICON) injection 0.2 mg 0.2 mg, intravenous, As needed, for susp ected benzodiazepine overdose, Starting on Fri01/17/21 at 1546, Postprocedure (SI), every 20 min p rn for suspected benzodiazepine overdose heparin (porcine) injection 3,275 Units Given 01/16/2021 4:11 PM PDT 3,275 Units 3,275 Units (50 Units/kg ? 65.5 kg), intravenous, Once, On Fri01/16/21 at 1516, For 1 dose, If patient weight greater than 83 kg, use a dosing weight of 83 kg for entire infusion., Indications: acute coronary syndrome heparin (porcine) injection Given 01/17/2021 2:35 PM PDT 5,000 Units intravenous, Code/trauma/sedation medication, Starting on Fri01/17/21 at 1435 heparin 25,000 units Rate/Dose Change 01/16/2021 10:03 11 Units/kg/ hr 14.41 mL/hr in 500 mL 0.45% NS PM PDT (premix) 11 Units/kg/hr ? 65.5 kg Order-Specific weight (14.41 mL/hr), intravenous, at 14.41 mL/hr, Titrated, Starting on Fri01/16/21 at 1516, If patient weight greater than 83 kg, use a dosing weight of 83 kg for entire infusion., Indications: acute coronary syndrome New Bag 01/16/2021 4:08 PM PDT 12 Units/kg/hr 15.72 mL/hr iopamidoL (ISOVUE-370) 76 % injection Given 01/17/2021 3:27 PM PDT 170 mL Code/trauma/sedation medication, Starting on Fri01/17/21 at 1527 lidocaine (XYLOCAINE) 10 mg/mL (1 %) inj ection 1 mL 1 mL, infiltration, Once as needed, for use as anesthetic for IV start, Starting on Fri01/16/21 at 2014, For 1 dose midazolam (VERSED) injection Given 01/17/2021 3:24 PM PDT 1 mg intravenous, Code/trauma/sedation medication, Starting on Fri01/17/21 at 1434 Given 01/17/2021 2:58 PM PDT 1 mg Given 01/17/2021 2:34 PM PDT 2 mg naloxone (NARCAN) injection 0.4 mg 0.4 mg, intravenous, As needed, opioid r eversal, respiratory depression, Starting on Fri01/17/21 at 1546, Postprocedure (SI) nitroglycerin (NITROLINGUAL) 400 mcg/spray Given 01/17 2:35 PM PDT 2 sprays translingual sublingual, Code/trauma/sedation medication, Starting on Fri01/17/21 at 1435 nitroglycerin 100 mcg/mL injection Given 01/17/2021 3:01 PM PDT 100 mcg Code/trauma/sedation medication, Starting on Fri01/17/21 at 1501 Given 01/17/2021 2:35 PM PDT 200 mcg Righ t Arm ondansetron (ZOFRAN) injection 4 mg 4 mg, intravenous, Every 8 hours PRN, na usea, vomiting, Starting on Fri01/16/21 at 2013, 1st line antiemetic *Give IV if UNABLE to take o rally. ondansetron ODT (ZOFRAN-ODT) disintegrat ing tablet 4 mg 4 mg, oral, Every 4 hours PRN, nausea, v omiting, Starting on Fri01/16/21 at 2013, 1st line antiemetic * Use first if patient ABLE to antonio e PO meds sodium chloride (NS) 0.9 % New Bag 01/17/2021 4:09 PM PDT 100 mL/ hr 100 mL/hr infusion 100 mL/hr, intravenous, at 100 mL/hr, Continuous, Starting on Fri01/17/21 at 1600, For 4 hours, Postprocedure (SI), then saline lock until patient ready for discharge. sodium chloride 0.9 % flush 10 mL 10 mL, intravenous, As needed, line care, Starting on Fri01/16/21 at 2013 verapamil injection Given 01/17/2021 2:35 PM 1,000 mcg Code/trauma/sedation medication, Starting PDT on Fri01/17/21 at 1501 documented in this encounter Active and Recently Administered Medications Times are shown in PDT. Scheduled Medication Order 01/16/2021 01/17/2021 01/18/2021 aspirin chewable tablet 324 mg (COMPLETED) 1502 (Given - Provider: Yousuf Rogers RN) 324 mg, oral, Once, On Fri01/16/21 at 145 7, For 1 dose, Dispense four 81mg tablets aspirin chewable tablet 81 mg 08 31 (Given - Provider: Lizbet Dougherty RN) 81 mg, oral, Daily, First dose on Fri01/18/21 at 0900, Postproce dure (SI) atorvastatin (LIPITOR) tablet 40 mg 40 mg, oral, Nightly, First dose on Fri01/18/21 at 2100 clopidogreL (PLAVIX) tablet 300 mg (COMPLETED) 1502 (G iven - Provider: Yousuf Rogers RN) 300 mg, oral, Once, On Fri01/16/21 at 1451, For 1 dose clopidogreL (PLAVIX) tablet 75 mg 08 (Given - Provider: Lizbet Dougherty RN) 75 mg, oral, Daily, First dose on Fri01/18/21 at 0900, Postproce dure (SI) heparin (porcine) injection 3,275 Units (COMPLETED) 16 11 (Given - Provider: Yousuf Rogers RN) 3,275 Units (50 Units/kg ? 65.5 kg), intravenous, Once, On Fri01/16/21 at 1516, For 1 dose, If patient weight greater than 83 kg, use a dosing weight of 83 kg for entire infusion., Indications: acute coronary syndrome Continuous Medication Order 01/16/2021 01/17/2021 01/18/2021 heparin 25,000 units in 500 mL 0.45% NS (premix) (CANC ELED) 1608 (New Bag - Provider: Yousuf Rogers RN)2203 (Rate/Dose Change - Provider: Laurita Garcia RN) 1527 (Stopped - Provider: René Mcconnell RN) 11 Units/kg/hr ? 65.5 kg Order-Specific weight (14.41 mL/hr), intravenous, at 14.41 mL/hr, Titrated, Starting on Fri01/16/21 at 1516, If patient weight greater than 83 kg, use a dosing weight of 83 kg f or entire infusion., Indications: acute coronary syndrome sodium chloride (NS) 0.9 % infusion () 1609 (New Bag - Provider: Nicole Solorzano RN)2104 (Stopped - Provider: Janny Diaz) 100 mL/hr, intravenous, at 100 mL/hr, Co ntinuous, Starting on Fri01/17/21 at 1600, For 4 hours, Postprocedure (SI), then saline lock until patient ready for discharge. PRN Medication Order 01/16/2021 01/17/2021 01/18/2021 acetaminophen (TYLENOL) tablet 650 mg 650 mg, oral, Every 4 hours PRN, mild pa in, (1-3), Starting on Fri01/16/21 at 2014, total Acetaminophen dose from ALL sources including combination products should not exceed 4,000 mg in a 24 hour period. Can be given concurrently with ibuprofen. atropine injection (abboject) 0.5-1 mg 0.5-1 mg, intravenous, Every 5 min PRN, bradycardia, symptomatic bradycardia, Starting on Fri01/17/21 at 1546, Postprocedure (SI), Repeat as directed. clopidogreL (PLAVIX) tablet (COMPLETED) 1523 (Given - Provider: René Mcconnell RN) oral, Code/trauma/sedation medication, Starting on Fri01/17/21 at 1523 docusate sodium (COLACE) capsule 100 mg 100 mg, oral, 2 times daily PRN, constip ation, Starting on Fri01/17/21 at 0000, Initiate on hospital day 2 if patient hasn't had bowel movement. Continue with ambulation and fluids. hold for loose stools., Indications: constipation fentaNYL (SUBLIMAZE) injection (COMPLETED) 1440 (Given - Provider: René Mcconnell RN)1459 (Given - Provider: René Mcconnell RN)1524 (Given - Provider: René Mcconnell RN) intravenous, Code/trauma/sedation medication, Starting on 05/01 at 1440 flumazeniL (ROMAZICON) injection 0.2 mg 0.2 mg, intravenous, As needed, for susp ected benzodiazepine overdose, Starting on Fri01/17/21 at 1546, Postprocedure (SI), every 20 min prn for suspected benzodiazepine overdose heparin (porcine) injection (COMPLETED) 1435 (Given - Provider: René Mcconnell RN) intravenous, Code/trauma/sedation medication, Starting on 05/01 at 1435 iopamidoL (ISOVUE-370) 76 % injection (COMPLETED) 1527 (Given - Provider: Rajesh Brock MD) Code/trauma/sedation medication, Starting on Fri01/17/21 at 1527 lidocaine (XYLOCAINE) 10 mg/mL (1 %) injection 1 mL(Linked Group 1) 1 mL, infiltration, Once as needed, for use as anesthetic for IV start, Starting on Fri01/16/21 at 2014, For 1 dose midazolam (VERSED) injection (COMPLETED) 1434 (Given - Provider: René Mcconnell RN)1458 (Given - Provider: René Mcconnell RN)1524 (Given - Provider: René Mcconnell RN) intravenous, Code/trauma/sedation medication, Starting on 05/01 at 1434 naloxone (NARCAN) injection 0.04 mg 0.04 mg, intravenous, As needed, opioid reversal, respiratory depression, respiratory rate less than 8, Starting on Fri01/16/21 at 2014, Every 1 Minute PRN For Opiate Reversal 1. Draw up 0.4 mg (1 mL) i n 10 mL syringe, and dilute with 9 mL of saline for an naloxone concentration of 0.04 mg/mL. 2. Give 0.04 mg (1 mL) IV push flushing solution into vein and repeat every min until resp rate greater than 10 per min and level of sedation improv ed. 3. Notify Provider STAT., Indications: opiate-induced respiratory depression naloxone (NARCAN) injection 0.4 mg 0.4 mg, intravenous, As needed, opioid r eversal, respiratory depression, Starting on Fri01/17/21 at 1546, Postprocedure (SI) nitroglycerin (NITROLINGUAL) 400 mcg/spray translingual (COM PLETED) 1435 (Given - Provider: René Mcconnell RN) sublingual, Code/trauma/sedation medication, Starting on 01/17 at 1435 nitroglycerin 100 mcg/mL injection (COMPLETED) 1435 (Given - Provider: Rajesh Brock MD)1501 (Given - Provider: René Mcconnell RN) Code/trauma/sedation medication, Starting on Fri01/17/21 at 1501 ondansetron (ZOFRAN) injection 4 mg(Linked Group 2) 4 mg, intravenous, Every 8 hours PRN, na usea, vomiting, Starting on Fri01/16/21 at 2013, 1st line antiemetic *Give IV if UNABLE to take orally. ondansetron ODT (ZOFRAN-ODT) disintegrating tablet 4 mg(Linked G roup 2) 4 mg, oral, Every 4 hours PRN, nausea, v omiting, Starting on Fri01/16/21 at 2013, 1st line antiemetic * Use first if patient ABLE to take PO meds polyethylene glycol (GLYCOLAX) packet 17 g 17 g, oral, Daily PRN, constipation, Sta rting on Fri01/17/21 at 0000, Initiate on hospital day 2 if patient hasn't had bowel movement. Continue with ambulation and fluids. hold for loose stool., Indications: constipation senna (SENOKOT) tablet 8.6 mg 8.6 mg (1 tablet), oral, 2 times daily P RN, constipation, Starting on Fri01/17/21 at 0000, Initiate on hospital day 2 if patient hasn't had bowel movement. Continue with ambulation and fluids. hold for loose stools., Indications: constipation sodium chloride 0.9 % flush 10 mL(Linked Group 1) 10 mL, intravenous, As needed, line care, Starting on Fri01/16/21 at 2014 verapamil injection (COMPLETED) 1435 (Given - Pr ovider: Rajesh Brock MD) Code/trauma/sedation medication, Starting on Fri01/17/21 at 1501 Linked Groups Order Group 1: Insert peripheral IV (CANCELED) Once, On Fri01/16/21 at 2014, For 1 occur rence And lidocaine (XYLOCAINE) 10 mg/mL (1 %) injection 1 mLJump to med 1 mL, infiltration, Once as needed, for use as anesthetic for IV start, Starting on Fri01/16/21 at 2013, For 1 dose And Maintain IV access (CANCELED) Until discontinued, Starting on Fri at 2014, Until Specified And Saline lock IV (CANCELED) Once, On Fri01/16/21 at 2014, For 1 occur rence And sodium chloride 0.9 % flush 10 mLJump to med 10 mL, intravenous, As needed, line care , Starting on Fri01/16/21 at 2013 Group 2: ondansetron ODT (ZOFRAN-ODT) disintegrating tablet 4 mgJump to med 4 mg, oral, Every 4 hours PRN, nausea, v omiting, Starting on Fri01/16/21 at 2013
1st line antiemetic * Use first if patient ABLE to take PO meds
Or ondansetron (ZOFRAN) injection 4 mgJump to med 4 mg, intravenous, Every 8 hours PRN, na usea, vomiting, Starting on Fri01/16/21 at 2013
1st line antiemetic *Give IV if UNABLE to take orally.
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
== END 2021-07-25 10:31 ==
LOC: CAR 08:30
PROVIDERS: Referring Provider Internal Medicine Cardiovascular Disease; Visit Provider Internal Medicine Cardiovascular Disease
DX: Z95.5 Presence of coronary angioplasty implant and graft (principal)
CPT/HCPCS: 93798

== ENCOUNTER → 2024-10-13 09:10 | Outpatient (CLI) | payer OTHER, SELFPAY ==
--- NOTE | 2024-10-13 09:13 | DI.MRI.S_ITS ---
PROCEDURE: MR HEAD/BRAIN WO/W CON INDICATIONS: amnesia TECHNIQUE: Noncontrast axial T1 spin echo, axial T2 fast spin echo, sagittal and axial FLAIR, coronal T2 fast spin echo, axial gradient echo, axial diffusion and ADC through the brain. After the administration of contrast, axial and coronal and sagittal 3D VIBE or T1 spin echo with fat saturation through the brain. COMPARISON: None. FINDINGS: Image quality: Excellent. CSF Spaces: Basal cisterns are patent. No extra-axial fluid collections. Ventricles are normal in size and shape. Brain: No midline shift. No intracranial bleeds or masses. There is mild, diffuse cerebral volume loss. There are minimal periventricular and subcortical white matter chronic microvascular ischemic changes. No abnormal intracranial enhancement. The brainstem appears normal. Diffusion-weighted images demonstrate no acute infarct. No chronic ischemic insults. Normal intravascular flow voids are present. Skull and face: Calvarial marrow is normal in signal. Orbits appear normal. Sinuses: Sinuses appear clear. Fluid in the right mastoid air cells. IMPRESSION: No acute intracranial disease process. No acute or chronic infarcts. No abnormal intracranial mass or suspicious postcontrast enhancement. Mild, diffuse cerebral volume loss. Minimal periventricular and subcortical white matter chronic microvascular ischemic change. Right mastoid air cell fluid. Recommend correlation with physical findings to differentiate serous fluid from mastoiditis. Dictated by: Dea Marsh MD, PhD on 10/13/2024 at 11:50 Approved by: Dea Marsh MD, PhD on 10/13/2024 at 11:53
== END ==
PROVIDERS: PCP Physician Assistant Medical; Referring Provider Physician Assistant Medical; Visit Provider Physician Assistant Medical
DX: R41.3 Other amnesia (principal)
CPT/HCPCS: 70553; A9579